=== PATIENT | female | born 1990 | race Caucasian/White ===

== ENCOUNTER 2016-12-08 07:38 | Emergency (ER) | payer SELFPAY ==
[~2016-12-08] VITALS: Ht 162.6 cm; Wt 108.9 kg
[~2016-12-08 07:38] MED LIST: AMOX500T PO; BENZ100C PO; CIPR10DR AD; PRED-220 PO; PRED50TA PO; PROAIR HFA8.5 GM INH; TRAM-29 PO
[2016-12-08 07:47] VITALS: BP 126/68
[2016-12-08] MEDS ORDERED: CEPH-264 PO (08:29)
[2016-12-08] MEDS ORDERED: PRED20TA PO (08:29)
--- NOTE | 2016-12-08 08:29 | PHYS DOC ---
Past Medical History Past Medical History: Asthma Past Surgical History: Alcohol Use: None Drug Use: None Adult General Chief Complaint Chief Complaint: INSECT BITE HPI HPI Patient is a 26 year old female presents to the emergency department with a history of being bitten by something around 0300 this morning. Patient states she has had redness and swelling to the left arm. Patient states she has had numbness and tingling to the lower left hand. Patients tetanus immunization is up to date. Patient denies fever, chills, SOA or difficulty breathing. Review of Systems Review of Systems Constitutional: Denies fever or chills [] Eyes: Denies change in visual acuity, redness, or eye pain [] HENT: Denies nasal congestion or sore throat [] Respiratory: Denies cough or shortness of breath [] Cardiovascular: No additional information not addressed in HPI [] GI: Denies abdominal pain, nausea, vomiting, bloody stools or diarrhea [] : Denies dysuria or hematuria [] Musculoskeletal: Denies back pain or joint pain [] Integument: Denies rash or skin lesions. Patient with redness and swelling noted. Neurologic: Denies headache, focal weakness or sensory changes [] Allergies Allergies Allergies Coded Allergies Type Severity Reaction Last Updated Verified No Known Drug Allergies 08/18/13 No Physical Exam Physical Exam Constitutional: Well developed, well nourished, no acute distress, non-toxic appearance. [] HENT: Normocephalic, atraumatic, bilateral external ears normal, oropharynx moist, no oral exudates, nose normal. [] Eyes: PERRLA, EOMI, conjunctiva normal, no discharge. [] Neck: Normal range of motion, no tenderness, supple, no stridor. [] Cardiovascular:Heart rate regular rhythm, no murmur [] Lungs & Thorax: Bilateral breath sounds clear to auscultation [] Skin: Warm, dry, no erythema, no rash. Patient with redness and swelling to the left lower humerus area. Peripheral pulses 2+ cap refill brisk < 2 seconds. Back: No tenderness Extremities: No tenderness, no cyanosis, no clubbing, ROM intact, no edema. Patient with equal machine builder bilaterally. Neurologic: Alert and oriented X 3, normal motor function, normal sensory function, no focal deficits noted. [] Psychologic: Affect normal, judgement normal, mood normal. [] Current Patient Data Vital Signs Vital Signs Date Time Temp Pulse Resp B/P Pulse Ox O2 Delivery O2 Flow Rate FiO2 12/08/16 07:47 98.3 94 16 96 Room Air 98.3 EKG EKG [] Radiology/Procedures Radiology/Procedures [] Course & Med Decision Making Course & Med Decision Making Pertinent Labs and Imaging studies reviewed. (See chart for details) Patient will be discharged home in stable condition. Patient was recommended to take Benadryl 25 mg every 6 hours as needed for itching and irritation. Patient will be placed on prednisone to help with reaction process. Patient will also be covered with Keflex as the swelling and redness appears significant. Patient will be provided with work noted. She was instructed that Benadryl will cause drowsiness do not take to if you need to be alert and oriented. She was provided with signs and symptoms to return back to the emergency department. Patient agrees with discharge instructions treatment regimens and follow-up recommendations. [] Dragon Disclaimer Dragon Disclaimer This electronic medical record was generated, in whole or in part, using a voice recognition dictation system. Departure Departure Impression: Primary Impression: Insect bite Disposition: HOME, SELF-CARE Condition: STABLE Referrals: UNKNOWN PCP NAME (PCP) Patient Instructions: Insect Bite, [id number] Additional Instructions: Activity as tolerated Medication as prescribed Benadryl 25 mg every 6 hours as needed for itching and irritation. This medication will cause drowsiness do note take if you need to be alert and oriented Ice packs to the area on 2o minutes and off 20 minutes several times a day Followup with primary care provider in 3-5 days Return to emergency department as needed for signs and symptoms that become worse. Scripts Cephalexin (Keflex)500 Mg Capsule1 Cap PO BID #14 CAP Prov:MARTA BRADFORD APRN 12/08/16 Prednisone 20 Mg Cfovww00 Mg PO DAILY #10 TAB Prov:MARTA BRADFORD APRN 12/08/16 MARTA BRADFORD APRN Dec 08, 2016 08:29
== END 2016-12-08 08:46 | disposition home or self-care (01) ==
LOC: ER 07:38
DX: S40.862A Insect bite (nonvenomous) of left upper arm, initial encounter (principal); J45.909 Unspecified asthma, uncomplicated; W57.XXXA Bitten or stung by nonvenomous insect and other nonvenomous arthropods, initial encounter; Y93.89 Activity, other specified; Y92.89 Other specified places as the place of occurrence of the external cause; Y99.8 Other external cause status
CPT/HCPCS: 99283

== ENCOUNTER 2017-02-07 08:44 | Emergency (ER) | payer SELFPAY ==
[~2017-02-07] VITALS: Ht 162.6 cm; Wt 108.9 kg
[~2017-02-07 08:44] MED LIST changes: +CEPH-264 PO; +PRED20TA PO; -TRAM-29 PO; +TRAM-48 PO
[2017-02-07 08:51] VITALS: BP 140/66
--- NOTE | 2017-02-07 09:06 | PHYS DOC ---
Past Medical History Past Medical History: Hypertension Past Surgical History: Alcohol Use: None Drug Use: None Adult General Chief Complaint Chief Complaint: SORE THROAT HPI HPI Patient is a 26 year old female presents to the emergency department with 2 day history of sore throat. She complains of mild sinus congestion. Low-grade fever today which was relieved with use of Motrin. Review of Systems Review of Systems Constitutional: fever HENT: nasal congestion and sore throat [] Respiratory: Denies cough or shortness of breath [] GI: Denies abdominal pain, nausea, vomiting, bloody stools or diarrhea [] : Denies dysuria or hematuria [] Musculoskeletal: Denies back pain or joint pain [] Integument: Denies rash or skin lesions [] Neurologic: Denies headache, focal weakness or sensory changes [] Allergies Allergies Allergies Coded Allergies Type Severity Reaction Last Updated Verified codeine Allergy Mild ITCHING 02/07/17 Yes Physical Exam Physical Exam Constitutional: Well developed, well nourished, no acute distress, non-toxic appearance. [] HENT: Normocephalic, atraumatic, bilateral tympanic membranes pearly guardado with effusion, posterior pharynx injected with postnasal drip present. Anterior turbinates erythematous Eyes: conjunctiva normal, no discharge. [] Neck: Normal range of motion, no tenderness, supple, no stridor. [] Cardiovascular:Heart rate regular rhythm, no murmur [] Lungs & Thorax: Bilateral breath sounds clear to auscultation [] Skin: Warm, dry, no erythema, no rash. [] Back: No tenderness, no CVA tenderness. [] Neurologic: Alert and oriented X 3, normal motor function, normal sensory function, no focal deficits noted. [] Current Patient Data Vital Signs Vital Signs Date Time Temp Pulse Resp B/P (MAP) Pulse Ox O2 Delivery O2 Flow Rate FiO2 02/07/17 08:51 98.3 101 18 140/66 (90) 97 Room Air 98.3 Lab Values Rapid strep positive EKG EKG [] Radiology/Procedures Radiology/Procedures [] Course & Med Decision Making Course & Med Decision Making Bicillin LA 1.2 milliunits IM in the emergency department Pertinent Labs and Imaging studies reviewed. (See chart for details) [] Dragon Disclaimer Dragon Disclaimer This electronic medical record was generated, in whole or in part, using a voice recognition dictation system. Departure Departure Impression: Primary Impression: Pharyngitis, streptococcal Disposition: 01 HOME, SELF-CARE Condition: STABLE Referrals: NO PCP (PCP) Patient Instructions: Strep Throat Additional Instructions: Bicillian LA 1.2MU IM given in the ED Tylenol alternate with advil as labeled and as indicated for symptom management\ Salt water gargles MISAEL FLORES APRN Feb 07, 2017 09:06
[2017-02-07] MEDS ORDERED: PENICILLIN G BENZATHINE LA 1,200,000 UNIT/2 ML DISP.SYRIN. IM ONE (09:30)
[2017-02-07 11:25] LABS: NEGATIVE OBC STREP NEG; POSITIVE OBC STREP POS
== END 2017-02-07 10:10 | disposition home or self-care (01) ==
LOC: ER 08:44
DX: J02.0 Streptococcal pharyngitis (principal); I10 Essential (primary) hypertension; Z88.5 Allergy status to narcotic agent
CPT/HCPCS: 87880; 96372; 99283; J0561

== ENCOUNTER 2017-04-07 17:07 | Emergency (ER) | payer SELFPAY ==
[~2017-04-07] VITALS: Ht 162.6 cm; Wt 102.1 kg
[2017-04-07 17:25] VITALS: BP 143/52
--- NOTE | 2017-04-07 17:28 | PHYS DOC ---
Past Medical History Past Medical History: Hypertension Past Surgical History: Alcohol Use: None Drug Use: None Adult General Chief Complaint Chief Complaint: PAIN ON URINATION HPI HPI Patient is a 27 year old female presents to the emergency department with complaints of left ear pain that began this morning and one week history of dysuria. She states she was using [id number] Uristat for relief of symptoms prior to 2 days ago and the symptoms intensified. She has no abdominal pain, she denies vaginal discharge, denies risk of or STD. She reports chills without measured fever. Review of Systems Review of Systems Constitutional: Chills without measured fever Eyes: Denies change in visual acuity, redness, or eye pain [] HENT: Denies nasal congestion or sore throat , left ear pain, nasal congestion [ ] Respiratory: Denies cough or shortness of breath [] GI: Denies abdominal pain, nausea, vomiting, bloody stools or diarrhea [] : Dysuria without hematuria Musculoskeletal: Denies back pain or joint pain [] Integument: Denies rash or skin lesions [] Neurologic: Denies headache, focal weakness or sensory changes [] Endocrine: Denies polyuria or polydipsia [] Allergies Allergies Allergies Coded Allergies Type Severity Reaction Last Updated Verified codeine Allergy Mild ITCHING 02/07/17 Yes Physical Exam Physical Exam Constitutional: Well developed, well nourished, no acute distress, non-toxic appearance. [] HENT: Normocephalic, atraumatic, left tympanic membrane erythematous with effusion. Clear discharge bilateral nares, posterior pharynx injected Eyes: PERRLA, EOMI, conjunctiva normal, no discharge. [] Neck: Normal range of motion, no tenderness, supple, no stridor. [] Cardiovascular:Heart rate regular rhythm, no murmur [] Lungs & Thorax: Bilateral breath sounds clear to auscultation [] Abdomen: Bowel sounds normal, soft, no tenderness, no masses, no pulsatile masses. [] Skin: Warm, dry, no erythema, no rash. [] Back: No tenderness, no CVA tenderness. [] Extremities: No tenderness, no cyanosis, no clubbing, ROM intact, no edema. [] Neurologic: Alert and oriented X 3, normal motor function, normal sensory function, no focal deficits noted. [] Psychologic: Affect normal, judgement normal, mood normal. [] Current Patient Data Vital Signs Vital Signs Date Time Temp Pulse Resp B/P (MAP) Pulse Ox O2 Delivery O2 Flow Rate FiO2 04/07/17 17:25 98.1 94 20 96 Room Air 98.1 Lab Values Laboratory Tests Test 04/07/17 16:38 04/07/17 17:12 POC Urine HCG, Qualitative Hcg negative (Negative) Urine Collection Type Unknown Urine Color Yellow Urine Clarity Cloudy Urine pH 5.5 Urine Specific [place] 1.025 Urine Protein Negative mg/dL (NEG-TRACE) Urine Glucose (UA) Negative mg/dL (NEG) Urine Ketones (Stick) Negative mg/dL (NEG) Urine Blood Trace (NEG) Urine Nitrite Negative (NEG) Urine Bilirubin Negative (NEG) Urine Urobilinogen Dipstick 0.2 mg/dL (0.2 mg/dL) Urine Leukocyte Esterase Moderate (NEG) Urine RBC Occ /HPF (0-2) Urine WBC 11-20 /HPF (0-4) Urine Squamous Epithelial Cells Mod /LPF Urine Bacteria Few /HPF (0-FEW) Urine Mucus Marked /LPF EKG EKG [] Radiology/Procedures Radiology/Procedures [] Course & Med Decision Making Course & Med Decision Making Pertinent Labs and Imaging studies reviewed. (See chart for details) [] Dragon Disclaimer Dragon Disclaimer This electronic medical record was generated, in whole or in part, using a voice recognition dictation system. Departure Departure Impression: Primary Impression: Left otitis media Additional Impression: UTI (lower urinary tract infection) Disposition: 01 HOME, SELF-CARE Condition: STABLE Referrals: NO PCP (PCP) Patient Instructions: Otitis Media, Adult, Urinary Tract Infection Scripts Sulfamethoxazole/Trimethoprim (BACTRIM DS TABLET) 1 Each Tablet 1 TAB PO BID, #20 TAB Prov: MISAEL FLORES CREW CHIEF 04/07/17 Problem Qualifiers Primary Impression: Left otitis media Otitis media type: serous Chronicity: acute Recurrence: not specified as recurrent Qualified Codes: H65.02 - Acute serous otitis media, left ear MISAEL FLORES CREW CHIEF Apr 07, 2017 17:28
[2017-04-07 17:34] LABS: BILIRUBIN,URINE NEGATIVE (NEG); GLUCOSE,URINE NEGATIVE (NEG); NITRITE,URINE NEGATIVE (NEG); PH,URINE 5.5; PROTEIN,URINE NEGATIVE (NEG-TRACE); UROBILINOGEN,URINE 0.2 mg/dL (0.2 mg/dL)
[2017-04-07 18:01] LABS: BACTERIA,URINE FEW /HPF (0-FEW); RBC,URINE OCC /HPF (0-2); SQUAMOUS EPITHELIAL CELL,UR MOD /LPF
[2017-04-07] MEDS ORDERED: SULF1TAB24 PO (18:12)
== END 2017-04-07 18:18 | disposition home or self-care (01) ==
LOC: ER 17:07
DX: H65.02 Acute serous otitis media, left ear (principal); N39.0 Urinary tract infection, site not specified; I10 Essential (primary) hypertension; Z88.5 Allergy status to narcotic agent
CPT/HCPCS: 81001; 81025; 87086; 99284

== ENCOUNTER 2017-08-22 11:36 | Emergency (ER) | payer SELFPAY ==
[2017-08-22 12:12] LABS: NEGATIVE OBC STREP NEG; POSITIVE OBC STREP POS
[2017-08-22] MEDS: DEXAMETHASONE 4 MG TABLET PO (12:33)
[2017-08-22] MEDS: PENICILLIN G BENZATHINE LA 1,200,000 UNIT/2 ML DISP.SYRIN. IM (12:33)
[2017-08-22] MEDS: LIDOCAINE 2% VISCOUS 15 ML SOLUTION. SWSW (12:33)
== END 2017-08-22 12:40 | disposition home or self-care (01) ==
LOC: ER 11:36
DX: J02.0 Streptococcal pharyngitis (principal); J45.909 Unspecified asthma, uncomplicated; I10 Essential (primary) hypertension
CPT/HCPCS: 87880; 96372; 99283-25; J0561; J8540

== ENCOUNTER 2017-09-30 19:33 | Emergency (ER) | payer SELFPAY ==
[2017-09-30 20:33] LABS: INFLUENZA A PATIENT NEGATIVE (NEGATIVE); INFLUENZA B PATIENT NEGATIVE (NEGATIVE); OBC FLU VALID
== END 2017-09-30 21:37 | disposition home or self-care (01) ==
LOC: ER 19:33
DX: J21.9 Acute bronchiolitis, unspecified (principal); B97.89 Other viral agents as the cause of diseases classified elsewhere; F17.200 Nicotine dependence, unspecified, uncomplicated; J06.9 Acute upper respiratory infection, unspecified; J45.909 Unspecified asthma, uncomplicated; I10 Essential (primary) hypertension
CPT/HCPCS: 71046; 87804; 87804-59; 99285-25

== ENCOUNTER 2017-11-14 23:54 | Emergency (ER) | payer OTHER ==
[2017-11-15 01:19] LABS: ADD MAN DIFF? NO
[2017-11-15 01:22] LABS: URINE HCG POC HCG NEGATIVE (Negative)
[2017-11-15 01:22] LABS: BASO # 0.1 x10^3/uL (0.0-0.2); BASO % 1 % (0-3); EOS # 0.4 x10^3/uL (0.0-0.7); EOS % 4 % (0-3); HEMATOCRIT 39.8 % (36.0-47.0); LYMPH # 2.9 x10^3/uL (1.0-4.8); LYMPH % 31 % (24-48); MEAN CORPUSCULAR HEMOGLOBIN 31 pg (25-35); MEAN CORPUSCULAR HGB CONC 35 g/dL (31-37); MEAN CORPUSCULAR VOLUME 88 fL (79-100); MONO # 0.9 x10^3/uL (0.0-1.1); MONO % 10 % (0-9); NEUT # 5.1 x10^3uL (1.8-7.7); NEUT % 54 % (31-73); PLATELET COUNT 263 x10^3/uL (140-400); RED BLOOD COUNT 4.55 x10^6/uL (3.50-5.40); WHITE BLOOD COUNT 9.4 x10^3/uL (4.0-11.0)
[2017-11-15 01:24] LABS: BILIRUBIN,URINE NEGATIVE (NEG); CLARITY,URINE CLEAR; COLOR,URINE YELLOW; GLUCOSE,URINE NEGATIVE (NEG); NITRITE,URINE NEGATIVE (NEG); PROTEIN,URINE NEGATIVE (NEG-TRACE)
[2017-11-15] MEDS: IV NORMAL SALINE 1000ML BAG 1,000 ML IV (01:25)
[2017-11-15] MEDS: KETOROLAC 30 MG/ML INJ. IV (01:25)
[2017-11-15] MEDS: LIDO:MAALOX:DONNATAL 1:1:1 15 ML SINGLE DOSE SWSW (01:25)
[2017-11-15] MEDS: IPRATRPIUM/ALBUTEROL 0.5/2.5MG 3 ML NEBU. NEB (01:30)
[2017-11-15 01:32] LABS: ANION GAP 11 (6-14); BLOOD UREA NITROGEN 6 mg/dL (7-20); BUN/CREATININE RATIO 10 (6-20); CALCIUM 9.4 mg/dL (8.5-10.1); CARBON DIOXIDE 27 mmol/L (21-32); CHLORIDE 103 mmol/L (98-107); CREATININE 0.6 mg/dL (0.6-1.0); GFR 118.2; GLUCOSE 110 mg/dL (70-99); POTASSIUM 3.8 mmol/L (3.5-5.1); SODIUM 141 mmol/L (136-145)
[2017-11-15 01:33] LABS: BACTERIA,URINE 0 /HPF (0-FEW); RBC,URINE 0 /HPF (0-2); SQUAMOUS EPITHELIAL CELL,UR FEW /LPF; WBC,URINE OCC /HPF (0-4)
[2017-11-15 01:35] LABS: D-DIMER 0.28 ug/mlFEU (0.00-0.50)
[2017-11-15 01:38] LABS: ALBUMIN 3.7 g/dL (3.4-5.0); ALBUMIN/GLOBULIN RATIO 1.1 (1.0-1.7); ALK PHOS 75 U/L (46-116); ALT (SGPT) 28 U/L (14-59); AST (SGOT) 13 U/L (15-37); LIPASE 100 U/L (73-393); TOTAL BILIRUBIN 0.2 mg/dL (0.2-1.0); TOTAL PROTEIN 7.2 g/dL (6.4-8.2)
[2017-11-15 01:58] LABS: TROPONINI < 0.017 ng/mL (0.000-0.055)
== END 2017-11-15 03:10 | disposition home or self-care (01) ==
LOC: ER 23:54
DX: J15.9 Unspecified bacterial pneumonia (principal); J45.901 Unspecified asthma with (acute) exacerbation; I10 Essential (primary) hypertension
CPT/HCPCS: 36415; 71046; 80053; 81001; 81025; 83690; 84484; 85025; 85379; 93005; 94640; 96361; 96374; 99285-25; J1885; J7030; J7620

== ENCOUNTER 2017-12-27 00:28 | Emergency (ER) | payer OTHER ==
[2017-12-27 01:27] LABS: ADD MAN DIFF? NO
[2017-12-27 01:30] LABS: BASO # 0.1 x10^3/uL (0.0-0.2); BASO % 1 % (0-3); EOS # 0.3 x10^3/uL (0.0-0.7); EOS % 3 % (0-3); HEMATOCRIT 34.8 % (36.0-47.0); HEMOGLOBIN 12.3 g/dL (12.0-15.5); LYMPH # 2.6 x10^3/uL (1.0-4.8); LYMPH % 28 % (24-48); MEAN CORPUSCULAR HEMOGLOBIN 31 pg (25-35); MEAN CORPUSCULAR HGB CONC 35 g/dL (31-37); MEAN CORPUSCULAR VOLUME 89 fL (79-100); MONO # 0.9 x10^3/uL (0.0-1.1); MONO % 9 % (0-9); NEUT # 5.6 x10^3uL (1.8-7.7); NEUT % 59 % (31-73); PLATELET COUNT 282 x10^3/uL (140-400); RED BLOOD COUNT 3.93 x10^6/uL (3.50-5.40); RED CELL DISTRIBUTION WIDTH 13.8 % (11.5-14.5); WHITE BLOOD COUNT 9.5 x10^3/uL (4.0-11.0)
[2017-12-27 01:48] LABS: ANION GAP 11 (6-14); BLOOD UREA NITROGEN 10 mg/dL (7-20); BUN/CREATININE RATIO 17 (6-20); CALCIUM 8.8 mg/dL (8.5-10.1); CARBON DIOXIDE 25 mmol/L (21-32); CHLORIDE 104 mmol/L (98-107); CREATININE 0.6 mg/dL (0.6-1.0); GFR 118.2; GLUCOSE 124 mg/dL (70-99); POTASSIUM 3.8 mmol/L (3.5-5.1); SODIUM 140 mmol/L (136-145)
[2017-12-27 01:53] LABS: ALBUMIN 3.6 g/dL (3.4-5.0); ALBUMIN/GLOBULIN RATIO 1.2 (1.0-1.7); ALK PHOS 69 U/L (46-116); ALT (SGPT) 27 U/L (14-59); AST (SGOT) 13 U/L (15-37); TOTAL BILIRUBIN 0.3 mg/dL (0.2-1.0); TOTAL PROTEIN 6.7 g/dL (6.4-8.2)
[2017-12-27 01:56] LABS: TROPONINI < 0.017 ng/mL (0.000-0.055)
== END 2017-12-27 02:43 | disposition home or self-care (01) ==
LOC: ER 00:28
DX: R20.0 Anesthesia of skin (principal); I10 Essential (primary) hypertension; J45.909 Unspecified asthma, uncomplicated; Z88.1 Allergy status to other antibiotic agents
CPT/HCPCS: 36415; 80053; 84484; 85025; 93005; 93971; 99285-25

== ENCOUNTER 2018-05-08 18:30 | Emergency (ER) | payer OTHER ==
[~2018-05-08] VITALS: Ht 162.6 cm; Wt 108.9 kg
[~2018-05-08 18:30] MED LIST changes: +AZIT250T6 PO; +DEXA4TAB PO; +SULF1TAB24 PO; +VENTOLIN HFA18 GM INH
[2018-05-08] MEDS ORDERED: ASPIRIN 325 MG TABLET PO ONE (19:45)
[2018-05-08 19:52] LABS: BASO # 0.1 x10^3/uL (0.0-0.2); BASO % 1 % (0-3); EOS # 0.4 x10^3/uL (0.0-0.7); EOS % 4 % (0-3); HEMATOCRIT 39.6 % (36.0-47.0); HEMOGLOBIN 13.7 g/dL (12.0-15.5); LYMPH # 2.4 x10^3/uL (1.0-4.8); LYMPH % 21 % (24-48); MEAN CORPUSCULAR HEMOGLOBIN 30 pg (25-35); MEAN CORPUSCULAR HGB CONC 35 g/dL (31-37); MEAN CORPUSCULAR VOLUME 87 fL (79-100); MONO # 0.8 x10^3/uL (0.0-1.1); MONO % 7 % (0-9); NEUT # 7.6 x10^3uL (1.8-7.7); NEUT % 67 % (31-73); PLATELET COUNT 257 x10^3/uL (140-400); RED BLOOD COUNT 4.56 x10^6/uL (3.50-5.40); RED CELL DISTRIBUTION WIDTH 13.4 % (11.5-14.5); WHITE BLOOD COUNT 11.3 x10^3/uL (4.0-11.0)
[2018-05-08 20:01] LABS: PROTHROMBIN TIME PATIENT 12.6 SEC (11.7-14.0)
[2018-05-08 20:01] LABS: U PREG PATIENT NEGATIVE (NEG)
[2018-05-08 20:02] LABS: CREATININE 0.6 mg/dL (0.6-1.0); GFR 117.4; POTASSIUM 3.9 mmol/L (3.5-5.1)
[2018-05-08 20:05] LABS: D-DIMER 0.36 ug/mlFEU (0.00-0.50)
[2018-05-08] MEDS ORDERED: ONDANSETRON PF 4 MG/2 ML VIAL. ONE (20:07)
[2018-05-08 20:10] LABS: ALBUMIN 3.7 g/dL (3.4-5.0); ALBUMIN/GLOBULIN RATIO 1.2 (1.0-1.7); TOTAL BILIRUBIN 0.2 mg/dL (0.2-1.0); TOTAL PROTEIN 6.9 g/dL (6.4-8.2)
[2018-05-08] MEDS ORDERED: ONDANSETRON PF 4 MG/2 ML VIAL. IV ONE (20:30)
[2018-05-08 20:45] VITALS: BP 121/73
--- NOTE | 2018-05-08 22:06 | EKG ---
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
--- NOTE | 2018-05-08 22:06 | PHYS DOC ---
Past Medical History Past Medical History: Asthma, Hypertension, Pneumonia Past Surgical History: Additional Past Surgical Histo: CARPAL TUNEL Alcohol Use: None Drug Use: None Adult General Chief Complaint Chief Complaint: CHEST PAIN HPI HPI Patient is a 28 year old [f__sex] who presents with [] Review of Systems Review of Systems Constitutional: Denies fever or chills [] Eyes: Denies change in visual acuity, redness, or eye pain [] HENT: Denies nasal congestion or sore throat [] Respiratory: Denies cough or shortness of breath [] Cardiovascular: No additional information not addressed in HPI [] GI: Denies abdominal pain, nausea, vomiting, bloody stools or diarrhea [] : Denies dysuria or hematuria [] Musculoskeletal: Denies back pain or joint pain [] Integument: Denies rash or skin lesions [] Neurologic: Denies headache, focal weakness or sensory changes [] Endocrine: Denies polyuria or polydipsia [] All other systems were reviewed and found to be within normal limits, except as documented in this note. Current Medications Current Medications Current Medications Medications (Trade) Dose Ordered Sig/Alex Start Time Stop Time Status Last Admin Dose Admin Aspirin (Gwendolyn Aspirin) 325 mg 1X ONCE 05/08/18 19:45 05/08/18 19:46 DC 05/08/18 19:15 325 MG Ondansetron HCl (Zofran) 4 mg 1X ONCE 05/08/18 20:30 05/08/18 20:31 DC 05/08/18 20:00 4 MG Allergies Allergies Allergies Coded Allergies Type Severity Reaction Last Updated Verified cephalexin Allergy Unknown 12/27/17 Yes Physical Exam Physical Exam Constitutional: Well developed, well nourished, no acute distress, non-toxic appearance. [] HENT: Normocephalic, atraumatic, bilateral external ears normal, oropharynx moist, no oral exudates, nose normal. [] Eyes: PERRLA, EOMI, conjunctiva normal, no discharge. [] Neck: Normal range of motion, no tenderness, supple, no stridor. [] Cardiovascular:Heart rate regular rhythm, no murmur [] Lungs & Thorax: Bilateral breath sounds clear to auscultation [] Abdomen: Bowel sounds normal, soft, no tenderness, no masses, no pulsatile masses. [] Skin: Warm, dry, no erythema, no rash. [] Back: No tenderness, no CVA tenderness. [] Extremities: No tenderness, no cyanosis, no clubbing, ROM intact, no edema. [] Neurologic: Alert and oriented X 3, normal motor function, normal sensory function, no focal deficits noted. [] Psychologic: Affect normal, judgement normal, mood normal. [] Current Patient Data Vital Signs Vital Signs Date Time Temp Pulse Resp B/P (MAP) Pulse Ox O2 Delivery O2 Flow Rate FiO2 05/08/18 20:45 72 18 121/73 (89) 99 05/08/18 19:10 98.9 Room Air 98.9 Lab Values Laboratory Tests Test 05/08/18 18:40 05/08/18 19:44 Urine Test Negative (NEG) White Blood Count 11.3 x10^3/uL (4.0-11.0) H Red Blood Count 4.56 x10^6/uL (3.50-5.40) Hemoglobin 13.7 g/dL (12.0-15.5) Hematocrit 39.6 % (36.0-47.0) Mean Corpuscular Volume 87 fL (79-100) Mean Corpuscular Hemoglobin 30 pg (25-35) Mean Corpuscular Hemoglobin Concent 35 g/dL (31-37) Red Cell Distribution Width 13.4 % (11.5-14.5) Platelet Count 257 x10^3/uL (140-400) Neutrophils (%) (Auto) 67 % (31-73) Lymphocytes (%) (Auto) 21 % (24-48) L Monocytes (%) (Auto) 7 % (0-9) Eosinophils (%) (Auto) 4 % (0-3) H Basophils (%) (Auto) 1 % (0-3) Neutrophils # (Auto) 7.6 x10^3uL (1.8-7.7) Lymphocytes # (Auto) 2.4 x10^3/uL (1.0-4.8) Monocytes # (Auto) 0.8 x10^3/uL (0.0-1.1) Eosinophils # (Auto) 0.4 x10^3/uL (0.0-0.7) Basophils # (Auto) 0.1 x10^3/uL (0.0-0.2) Prothrombin Time 12.6 SEC (11.7-14.0) Prothrombin Time INR 1.0 (0.8-1.1) D-Dimer (Carolann) 0.36 ug/mlFEU (0.00-0.50) Sodium Level 140 mmol/L (136-145) Potassium Level 3.9 mmol/L (3.5-5.1) Chloride Level 104 mmol/L (98-107) Carbon Dioxide Level 28 mmol/L (21-32) Anion Gap 8 (6-14) Blood Urea Nitrogen 7 mg/dL (7-20) Creatinine 0.6 mg/dL (0.6-1.0) Estimated GFR (Cockcroft-Gault) 117.4 BUN/Creatinine Ratio 12 (6-20) Glucose Level 102 mg/dL (70-99) H Calcium Level 9.0 mg/dL (8.5-10.1) Total Bilirubin 0.2 mg/dL (0.2-1.0) Aspartate Amino Transferase (AST) 15 U/L (15-37) Alanine Aminotransferase (ALT) 33 U/L (14-59) Alkaline Phosphatase 68 U/L (46-116) Troponin I Quantitative < 0.017 ng/mL (0.000-0.055) Total Protein 6.9 g/dL (6.4-8.2) Albumin 3.7 g/dL (3.4-5.0) Albumin/Globulin Ratio 1.2 (1.0-1.7) Laboratory Tests 05/08/18 19:44 Laboratory Tests 05/08/18 19:44 EKG EKG [] Radiology/Procedures Radiology/Procedures [] Course & Med Decision Making Course & Med Decision Making Pertinent Labs and Imaging studies reviewed. (See chart for details) [] Dragon Disclaimer Dragon Disclaimer This electronic medical record was generated, in whole or in part, using a voice recognition dictation system. Departure Departure Impression: Primary Impression: Atypical chest pain Disposition: 01 HOME, SELF-CARE Condition: STABLE Referrals: UNKNOWN PCP NAME (PCP) Patient Instructions: Chest Pain (Nonspecific)-Brief Additional Instructions: Tylenol or ibuprofen as needed for pain. Activity as tolerated. Follow-up with your primary care doctor for further evaluation of your ongoing non-specific chest pain. Return to the ER if her symptoms worsen. EVERARDO DOCKERY TRANSITIONS MANAGER May 08, 2018 22:06
--- NOTE | 2018-05-09 00:05 | RAD ---
PA and lateral chest radiographs 05/08/2018 CLINICAL HISTORY: Left-sided chest pressure for 2 days. Hypertension. Two PA and a lateral digital radiographs of the chest were obtained. Comparison study is dated 11/15/2017. The cardiac and mediastinal silhouettes are within normal limits in size and configuration. No acute pulmonary infiltrate is seen. No pleural effusion or pneumothorax is noted. Degenerative changes are seen involving the thoracic spine. IMPRESSION: No acute abnormality is seen. Electronically signed by: Hoang Matute MD (05/09/2018 12:02 AM) [facility]
== END 2018-05-08 22:11 | disposition home or self-care (01) ==
LOC: ER 18:30
DX: R07.89 Other chest pain (principal); J45.909 Unspecified asthma, uncomplicated; I10 Essential (primary) hypertension; Z88.1 Allergy status to other antibiotic agents
CPT/HCPCS: 36415; 71046; 80053; 81025; 84484; 85025; 85379; 85610; 93005; 96374; 99285; J2405

== ENCOUNTER 2018-11-10 17:36 | Emergency (ER) | payer OTHER ==
[~2018-11-10] VITALS: Ht 162.6 cm; Wt 106.6 kg
[~2018-11-10 17:36] MED LIST changes: +ALBU2.5V8 INH; -PROAIR HFA8.5 GM INH
[2018-11-10] MEDS ORDERED: LIDO:MAALOX 1:1 20 ML SINGLE DOSE. SWSW ONE ×2 (18:30→19:00)
[2018-11-10 18:34] LABS: BASO # 0.1 x10^3/uL (0.0-0.2); BASO % 1 % (0-3); EOS # 0.3 x10^3/uL (0.0-0.7); EOS % 3 % (0-3); HEMATOCRIT 37.7 % (36.0-47.0); HEMOGLOBIN 13.1 g/dL (12.0-15.5); LYMPH # 2.1 x10^3/uL (1.0-4.8); LYMPH % 25 % (24-48); MEAN CORPUSCULAR HEMOGLOBIN 30 pg (25-35); MEAN CORPUSCULAR HGB CONC 35 g/dL (31-37); MEAN CORPUSCULAR VOLUME 85 fL (79-100); MONO # 0.9 x10^3/uL (0.0-1.1); MONO % 10 % (0-9); NEUT # 5.2 x10^3uL (1.8-7.7); NEUT % 61 % (31-73); PLATELET COUNT 258 x10^3/uL (140-400); RED BLOOD COUNT 4.42 x10^6/uL (3.50-5.40); RED CELL DISTRIBUTION WIDTH 12.9 % (11.5-14.5); WHITE BLOOD COUNT 8.6 x10^3/uL (4.0-11.0)
[2018-11-10 18:42] LABS: CALCIUM 8.9 mg/dL (8.5-10.1); CREATININE 0.7 mg/dL (0.6-1.0); GFR 98.3; POTASSIUM 3.7 mmol/L (3.5-5.1)
[2018-11-10 18:47] LABS: ALBUMIN 3.7 g/dL (3.4-5.0); ALBUMIN/GLOBULIN RATIO 1.1 (1.0-1.7); TOTAL BILIRUBIN 0.2 mg/dL (0.2-1.0); TOTAL PROTEIN 7.2 g/dL (6.4-8.2)
[2018-11-10 19:39] VITALS: BP 136/87
[2018-11-10 19:52] LABS: BILIRUBIN,URINE NEGATIVE (NEG); CLARITY,URINE CLEAR; COLOR,URINE YELLOW; NITRITE,URINE NEGATIVE (NEG); PROTEIN,URINE NEGATIVE (NEG-TRACE); UROBILINOGEN,URINE 0.2 mg/dL (0.2 mg/dL)
[2018-11-10 20:00] LABS: RBC,URINE 0 /HPF (0-2)
[2018-11-10 20:01] LABS: BACTERIA,URINE FEW /HPF (0-FEW); SQUAMOUS EPITHELIAL CELL,UR FEW /LPF
[2018-11-10] MEDS ORDERED: OMEP20CA10 PO (21:07)
--- NOTE | 2018-11-10 21:08 | PHYS DOC ---
Past Medical History Past Medical History: Asthma, GERD, Hypertension, Pneumonia (TRINHMAVERICKSTACY Johnson APRN) Past Surgical History: , Other Additional Past Surgical Histo: CARPAL TUNEL (TRINHMAVERICKTERENCE Johnson APRN) Additional Information: 0.5 PPD Alcohol Use: None Drug Use: None (TRINHMAVERICKTERENCE Johnson APRN) Adult General Chief Complaint Chief Complaint: CHEST WALL PAIN HPI HPI Patient is a 28 year old female who presents with a bubbling sensation in her gut with sternal pain. She denies fever, nausea, constipation or diarrhea. She has not taken any OTC medications for this condition. (WILLEMKATYASHEEBAMAVERICKSTACY Johnson APRN) Review of Systems Review of Systems Constitutional: Denies fever or chills [] Eyes: Denies change in visual acuity, redness, or eye pain [] HENT: Denies nasal congestion or sore throat [] Respiratory: Denies cough or shortness of breath [] Cardiovascular: No additional information not addressed in HPI [] GI: See HPI : Denies dysuria or hematuria [] Musculoskeletal: Denies back pain or joint pain [] Integument: Denies rash or skin lesions [] Neurologic: Denies headache, focal weakness or sensory changes [] Endocrine: Denies polyuria or polydipsia [] All other systems were reviewed and found to be within normal limits, except as documented in this note. (TRINHMAVERICKTERENCE Johnson APRN) Current Medications Current Medications Current Medications Medications (Trade) Dose Ordered Sig/Alex Start Time Stop Time Status Last Admin Dose Admin Multi-Ingredient Mouthwash/Gargle (Gi Cocktail) 20 ml 1X ONCE 11/10/18 19:00 11/10/18 19:01 Cancel (MIN PURCELL MD) Allergies Allergies Allergies Coded Allergies Type Severity Reaction Last Updated Verified cephalexin Allergy Unknown 12/27/17 Yes (MIN PURCELL MD) Physical Exam Physical Exam Constitutional: Well developed, well nourished, no acute distress, non-toxic a ppearance. [] HENT: Normocephalic, atraumatic, bilateral external ears normal, oropharynx moist, no oral exudates, nose normal. [] Eyes: PERRLA, EOMI, conjunctiva normal, no discharge. [] Neck: Normal range of motion, no tenderness, supple, no stridor. [] Cardiovascular:Heart rate regular rhythm, no murmur, epigastric to mid sternal pain with palpation.[] Lungs & Thorax: Bilateral breath sounds clear to auscultation [] Abdomen: Bowel sounds normal, soft, mild epigastric tenderness, no masses, no pulsatile masses. [] Skin: Warm, dry, no erythema, no rash. [] Back: No tenderness, no CVA tenderness. [] Extremities: No tenderness, no cyanosis, no clubbing, ROM intact, no edema. [] Neurologic: Alert and oriented X 3, normal motor function, normal sensory function, no focal deficits noted. [] Psychologic: Affect normal, judgement normal, mood normal. [] (MAVERICK TSANG APRN) Current Patient Data Lab Values Laboratory Tests Test 11/10/18 18:15 11/10/18 19:33 11/10/18 19:40 White Blood Count 8.6 x10^3/uL (4.0-11.0) Red Blood Count 4.42 x10^6/uL (3.50-5.40) Hemoglobin 13.1 g/dL (12.0-15.5) Hematocrit 37.7 % (36.0-47.0) Mean Corpuscular Volume 85 fL (79-100) Mean Corpuscular Hemoglobin 30 pg (25-35) Mean Corpuscular Hemoglobin Concent 35 g/dL (31-37) Red Cell Distribution Width 12.9 % (11.5-14.5) Platelet Count 258 x10^3/uL (140-400) Neutrophils (%) (Auto) 61 % (31-73) Lymphocytes (%) (Auto) 25 % (24-48) Monocytes (%) (Auto) 10 % (0-9) H Eosinophils (%) (Auto) 3 % (0-3) Basophils (%) (Auto) 1 % (0-3) Neutrophils # (Auto) 5.2 x10^3uL (1.8-7.7) Lymphocytes # (Auto) 2.1 x10^3/uL (1.0-4.8) Monocytes # (Auto) 0.9 x10^3/uL (0.0-1.1) Eosinophils # (Auto) 0.3 x10^3/uL (0.0-0.7) Basophils # (Auto) 0.1 x10^3/uL (0.0-0.2) D-Dimer (Carolann) < 0.27 ug/mlFEU Sodium Level 136 mmol/L (136-145) Potassium Level 3.7 mmol/L (3.5-5.1) Chloride Level 100 mmol/L (98-107) Carbon Dioxide Level 30 mmol/L (21-32) Anion Gap 6 (6-14) Blood Urea Nitrogen 10 mg/dL (7-20) Creatinine 0.7 mg/dL (0.6-1.0) Estimated GFR (Cockcroft-Gault) 98.3 BUN/Creatinine Ratio 14 (6-20) Glucose Level 91 mg/dL (70-99) Calcium Level 8.9 mg/dL (8.5-10.1) Total Bilirubin 0.2 mg/dL (0.2-1.0) Aspartate Amino Transferase (AST) 13 U/L (15-37) L Alanine Aminotransferase (ALT) 31 U/L (14-59) Alkaline Phosphatase 73 U/L (46-116) Troponin I Quantitative < 0.017 ng/mL (0.000-0.055) Total Protein 7.2 g/dL (6.4-8.2) Albumin 3.7 g/dL (3.4-5.0) Albumin/Globulin Ratio 1.1 (1.0-1.7) Urine Collection Type Void Urine Color Yellow Urine Clarity Clear Urine pH 6.0 Urine Specific [place] 1.010 Urine Protein Negative mg/dL (NEG-TRACE) Urine Glucose (UA) Negative mg/dL (NEG) Urine Ketones (Stick) Negative mg/dL (NEG) Urine Blood Negative (NEG) Urine Nitrite Negative (NEG) Urine Bilirubin Negative (NEG) Urine Urobilinogen Dipstick 0.2 mg/dL (0.2 mg/dL) Urine Leukocyte Esterase Trace (NEG) Urine RBC 0 /HPF (0-2) Urine WBC 1-4 /HPF (0-4) Urine Squamous Epithelial Cells Few /LPF Urine Bacteria Few /HPF (0-FEW) POC Urine HCG, Qualitative Hcg negative (Negative) Laboratory Tests 11/10/18 18:15 Laboratory Tests 11/10/18 18:15 Microbiology 11/10/18 Urine Culture - Final, Complete 11/10/18 Urine Culture Result 1 (ANSHU) - Final, Complete 11/10/18 Urine Culture Result 2 (ANSHU) - Final, Complete (MIN PURCELL MD) EKG EKG [] (MAVERICK TSANG APRN) Radiology/Procedures Radiology/Procedures [][facility] [address] [place] [address] IMAGING REPORT Signed PATIENT: LEXIS RODRIGUEZ ACCOUNT: [id number] : 1990 LOCATION: ER AGE: 28 SEX: F EXAM STATUS: DEP ER ORD. PHYSICIAN: MAVERICK TSANG APRN REASON: chest wall pain. PREG TEST PROCEDURE: CHEST PA & LATERAL CHEST PA LATERAL History: Hypertension, asthma, atraumatic chest pain Comparison: May 08, 2018 Findings: 2 views of the chest are submitted. There is no infiltrate, pneumothorax, or effusion. The cardiac silhouette is within normal limits in size. The trachea is in the midline. No acute osseous abnormality is identified. Impression: 1. There is no evidence of acute cardiopulmonary disease. Electronically signed by: Kulwinder Martin MD (11/10/2018 10:54 PM) [facility] DICTATED and SIGNED BY: KULWINDER MARTIN MD DATE: 11/10/182253 (MAVERICK TSANG APRN) Course & Med Decision Making Course & Med Decision Making Pertinent Labs and Imaging studies reviewed. (See chart for details) []The patient was given a GI cocktail with relief of her symptoms. (MAVERICK TSANG APRN) Course & Med Decision Making Staff Physician Addendum: I was working in the ER during the course of this patient's visit. I was available for consultation as needed, but I was not directly involved in the care of this patient. (MIN PURCELL MD) Dragon Disclaimer Dragon Disclaimer This electronic medical record was generated, in whole or in part, using a voice recognition dictation system. (MAVERICK TSANG APRN) Departure Departure Impression: Primary Impression: GERD (gastroesophageal reflux disease) Disposition: HOME, SELF-CARE Condition: STABLE Referrals: UNKNOWN PCP NAME (PCP) BULL CARREON MD Patient Instructions: Diet for Gastroesophageal Reflux Disease, Adult Additional Instructions: Follow-up with the GI specialist for further evaluation of your symptoms. Take the medication as directed. If worsening return immediately to the emergency department. Scripts Omeprazole (OMEPRAZOLE) 20 Mg Capsule. 1 CAP PO DAILY for GERD, #30 CAP 5 Refills Prov: MAVERICK TSANG APRN 11/10/18 MAVERICK TSANG APRN Nov 10, 2018 21:08 MIN PURCELL MD Jan 21, 2019 18:22
--- NOTE | 2018-11-10 22:57 | RAD ---
CHEST PA LATERAL History: Hypertension, asthma, atraumatic chest pain Comparison: May 08, 2018 Findings: 2 views of the chest are submitted. There is no infiltrate, pneumothorax, or effusion. The cardiac silhouette is within normal limits in size. The trachea is in the midline. No acute osseous abnormality is identified. Impression: 1. There is no evidence of acute cardiopulmonary disease. Electronically signed by: Philip Johnson MD (11/10/2018 10:54 PM) [facility]
--- NOTE | 2018-11-11 10:06 | EKG ---
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
== END 2018-11-10 21:26 | disposition home or self-care (01) ==
LOC: ER 17:36
DX: K21.9 Gastro-esophageal reflux disease without esophagitis (principal); I10 Essential (primary) hypertension; J45.909 Unspecified asthma, uncomplicated; F17.200 Nicotine dependence, unspecified, uncomplicated; Z88.1 Allergy status to other antibiotic agents
CPT/HCPCS: 36415; 71046; 80053; 81001; 81025; 84484; 85025; 85379; 87086; 93005; 99284-25

== ENCOUNTER 2019-07-26 19:52 | Emergency (ER) | payer MEDICAID, OTHER ==
[~2019-07-26] VITALS: Ht 165.1 cm; Wt 113.4 kg
[~2019-07-26 19:52] MED LIST changes: +OMEP-229 PO
[2019-07-26 20:31] VITALS: BP 88/53
[2019-07-26 20:58] LABS: BASO # 0.1 x10^3/uL (0.0-0.2); BASO % 1 % (0-3); EOS # 0.4 x10^3/uL (0.0-0.7); EOS % 4 % (0-3); HEMATOCRIT 42.6 % (36.0-47.0); HEMOGLOBIN 14.5 g/dL (12.0-15.5); LYMPH # 2.4 x10^3/uL (1.0-4.8); LYMPH % 22 % (24-48); MEAN CORPUSCULAR HEMOGLOBIN 29 pg (25-35); MEAN CORPUSCULAR HGB CONC 34 g/dL (31-37); MEAN CORPUSCULAR VOLUME 86 fL (79-100); MONO # 0.9 x10^3/uL (0.0-1.1); MONO % 8 % (0-9); NEUT # 7.3 x10^3/uL (1.8-7.7); NEUT % 66 % (31-73); PLATELET COUNT 292 x10^3/uL (140-400); RED BLOOD COUNT 4.95 x10^6/uL (3.50-5.40); RED CELL DISTRIBUTION WIDTH 13.4 % (11.5-14.5); WHITE BLOOD COUNT 11.1 x10^3/uL (4.0-11.0)
[2019-07-26 21:10] LABS: PROTHROMBIN TIME PATIENT 12.9 SEC (11.7-14.0)
[2019-07-26 21:13] LABS: CALCIUM 8.8 mg/dL (8.5-10.1); CREATININE 0.7 mg/dL (0.6-1.0); GFR 97.6; POTASSIUM 3.3 mmol/L (3.5-5.1)
[2019-07-26 21:14] LABS: BILIRUBIN,URINE NEGATIVE (NEG); CLARITY,URINE CLOUDY; COLOR,URINE YELLOW; NITRITE,URINE NEGATIVE (NEG); PROTEIN,URINE NEGATIVE (NEG-TRACE)
[2019-07-26 21:16] LABS: D-DIMER 0.47 ug/mlFEU (0.00-0.50)
[2019-07-26 21:20] LABS: ALBUMIN 3.7 g/dL (3.4-5.0); ALBUMIN/GLOBULIN RATIO 0.9 (1.0-1.7); TOTAL BILIRUBIN 0.4 mg/dL (0.2-1.0); TOTAL PROTEIN 7.6 g/dL (6.4-8.2)
[2019-07-26 21:22] LABS: RBC,URINE 0 /HPF (0-2)
[2019-07-26 21:23] LABS: BACTERIA,URINE 0 /HPF (0-FEW); SQUAMOUS EPITHELIAL CELL,UR OCC /LPF
[2019-07-26] MEDS ORDERED: predniSONE 10 MG TABLET PO ONE (21:30)
[2019-07-26] MEDS ORDERED: IV NORMAL SALINE 1000ML BAG 1,000 ML IV SCH (21:30)
[2019-07-26] MEDS ORDERED: ALBUTEROL SULFATE 2.5 MG/3 ML NEBU. NEB ONE (21:30)
--- NOTE | 2019-07-26 21:33 | RAD ---
CT HEAD WO CONTRAST History: Numbness. Tingling left arm. Comparison: None. Technique: Noncontrast CT imaging was performed of the head. Exposure: One or more of the following individualized dose reduction techniques were utilized for this examination: 1. Automated exposure control 2. Adjustment of the mA and/or kV according to patient size 3. Use of iterative reconstruction technique. Findings: No intracranial hemorrhage. No mass effect. No hydrocephalus. Low-lying cerebellar tonsils. Imaged orbits are unremarkable. Imaged paranasal sinuses and mastoid air cells are clear. Impression: 1. No acute intracranial abnormality. 2. Low-lying cerebellar tonsils, may indicate Chiari I malformation. Electronically signed by: Aguilar Bryant DO (07/26/2019 9:30 PM) [facility]
--- NOTE | 2019-07-26 21:45 | PHYS DOC ---
Past Medical History Past Medical History: Anxiety, Asthma, GERD, Hypertension, Pneumonia (MARTA NULL APRN) Past Surgical History: , Other Additional Past Surgical Histo: CARPAL TUNEL (MARTA NULL APRN) Additional Information: 0.5 PPD Alcohol Use: None Drug Use: None (MARTA NULL APRN) Attending Signature I have participated in the care of this patient and I have reviewed and agree with all pertinent clinical information above including history, exam, and recommendations. (LUCAS NAVARRO MD) Adult General Chief Complaint Chief Complaint: CHEST PAIN HPI HPI Patient is a 29 year old female who presents with she began having aching in the left shoulder blade, left arm tight and tingling, left chest tightness and tingling and pressure. Patient states she will get short of air and began to sweat. Patient states she also has anxiety and asthma. Patient states she has an inhaler but hasn't tried her nebulizer machine because she does not have any solution for it. Patient states she is very anxious also. Patient rates her overall discomfort a 5 out of 10. (MARTA NULL APRN) Review of Systems Review of Systems Respiratory: Denies cough. +shortness of breath [] Cardiovascular: Left chest pain Musculoskeletal: Left arm numbness and tingling heaviness. Denies back pain or joint pain [] All other systems were reviewed and found to be within normal limits, except as documented in this note. (MARTA NULL APRN) Current Medications Current Medications Current Medications Medications (Trade) Dose Ordered Sig/Alex Start Time Stop Time Status Last Admin Dose Admin Albuterol Sulfate (Ventolin Neb Soln) 2.5 mg 1X ONCE 07/26/19 21:30 07/26/19 21:31 DC 07/26/19 21:12 2.5 MG Prednisone (Prednisone) 50 mg 1X ONCE 07/26/19 21:30 07/26/19 21:31 DC 07/26/19 21:12 50 MG Sodium Chloride 1,000 ml @ 1,000 mls/hr Q1H 07/26/19 21:30 07/26/19 22:29 DC 07/26/19 21:12 1,000 MLS/HR (LUCAS NAVARRO MD) Allergies Allergies Allergies Coded Allergies Type Severity Reaction Last Updated Verified cephalexin Allergy Unknown 12/27/17 Yes (LUCAS NAVARRO MD) Physical Exam Physical Exam Constitutional: Well developed, well nourished, no acute distress, non-toxic appearance. [] HENT: Normocephalic, atraumatic, bilateral external ears normal, oropharynx moist, no oral exudates, nose normal. [] Eyes: PERRLA, EOMI, conjunctiva normal, no discharge. [] Neck: Normal range of motion, no tenderness, supple, no stridor. [] Cardiovascular:Heart rate tachycardia regular rhythm, no murmur [] Lungs & Thorax: Bilateral breath sounds clear to auscultation [] Abdomen: Bowel sounds normal, soft, no tenderness, no masses, no pulsatile masses. [] Skin: Warm, dry, no erythema, no rash. [] Back: No tenderness, no CVA tenderness. [] Extremities: No tenderness, no cyanosis, no clubbing, ROM intact, no edema. [] Neurologic: Alert and oriented X 3, normal motor function, normal sensory function, no focal deficits noted. [] Psychologic: Affect normal, judgement normal, mood normal. [] (MARTA NULL APRN) Current Patient Data Vital Signs Vital Signs Date Time Temp Pulse Resp B/P (MAP) Pulse Ox O2 Delivery O2 Flow Rate FiO2 07/26/19 21:14 97 Room Air 07/26/19 20:44 88 16 132/64 (86) 07/26/19 19:53 98.2 98.2 (LUCAS NAVARRO MD) Lab Values Laboratory Tests Test 07/26/19 20:10 07/26/19 21:00 07/26/19 21:09 White Blood Count 11.1 x10^3/uL (4.0-11.0) H Red Blood Count 4.95 x10^6/uL (3.50-5.40) Hemoglobin 14.5 g/dL (12.0-15.5) Hematocrit 42.6 % (36.0-47.0) Mean Corpuscular Volume 86 fL (79-100) Mean Corpuscular Hemoglobin 29 pg (25-35) Mean Corpuscular Hemoglobin Concent 34 g/dL (31-37) Red Cell Distribution Width 13.4 % (11.5-14.5) Platelet Count 292 x10^3/uL (140-400) Neutrophils (%) (Auto) 66 % (31-73) Lymphocytes (%) (Auto) 22 % (24-48) L Monocytes (%) (Auto) 8 % (0-9) Eosinophils (%) (Auto) 4 % (0-3) H Basophils (%) (Auto) 1 % (0-3) Neutrophils # (Auto) 7.3 x10^3/uL (1.8-7.7) Lymphocytes # (Auto) 2.4 x10^3/uL (1.0-4.8) Monocytes # (Auto) 0.9 x10^3/uL (0.0-1.1) Eosinophils # (Auto) 0.4 x10^3/uL (0.0-0.7) Basophils # (Auto) 0.1 x10^3/uL (0.0-0.2) Prothrombin Time 12.9 SEC (11.7-14.0) Prothrombin Time INR 1.0 (0.8-1.1) D-Dimer (Carolann) 0.47 ug/mlFEU (0.00-0.50) Sodium Level 135 mmol/L (136-145) L Potassium Level 3.3 mmol/L (3.5-5.1) L Chloride Level 100 mmol/L (98-107) Carbon Dioxide Level 27 mmol/L (21-32) Anion Gap 8 (6-14) Blood Urea Nitrogen 8 mg/dL (7-20) Creatinine 0.7 mg/dL (0.6-1.0) Estimated GFR (Cockcroft-Gault) 97.6 BUN/Creatinine Ratio 11 (6-20) Glucose Level 148 mg/dL (70-99) H Calcium Level 8.8 mg/dL (8.5-10.1) Total Bilirubin 0.4 mg/dL (0.2-1.0) Aspartate Amino Transferase (AST) 13 U/L (15-37) L Alanine Aminotransferase (ALT) 28 U/L (14-59) Alkaline Phosphatase 78 U/L (46-116) Troponin I Quantitative < 0.017 ng/mL (0.000-0.055) Total Protein 7.6 g/dL (6.4-8.2) Albumin 3.7 g/dL (3.4-5.0) Albumin/Globulin Ratio 0.9 (1.0-1.7) L Lipase 106 U/L (73-393) Urine Color Yellow Urine Clarity Cloudy Urine pH 6.0 Urine Specific [place] 1.015 Urine Protein Negative mg/dL (NEG-TRACE) Urine Glucose (UA) Negative mg/dL (NEG) Urine Ketones (Stick) Negative mg/dL (NEG) Urine Blood Negative (NEG) Urine Nitrite Negative (NEG) Urine Bilirubin Negative (NEG) Urine Urobilinogen Dipstick 1.0 mg/dL (0.2 mg/dL) Urine Leukocyte Esterase Trace (NEG) Urine RBC 0 /HPF (0-2) Urine WBC 5-10 /HPF (0-4) Urine Squamous Epithelial Cells Occ /LPF Urine Bacteria 0 /HPF (0-FEW) Urine Mucus Slight /LPF POC Urine HCG, Qualitative Hcg negative (Negative) Laboratory Tests 07/26/19 20:10 Laboratory Tests 07/26/19 20:10 (LUCAS NAVARRO MD) EKG EKG Sinus tachycardia and no STEMI[] Interpretation Time: [address] Navarro (MARTA NULL APRN) Radiology/Procedures Radiology/Procedures [] (MARTA NULL APRN) Impressions: [address] [id number] IMAGING REPORT Signed PATIENT: LEXSI RODRIGUEZ RACCOUNT: [id number] : 1990 LOCATION: ER AGE: 29 SEX: F EXAM STATUS: REG ER ORD. PHYSICIAN: MARTA NULL APRN REASON: soa, chest pain PROCEDURE: CHEST PA & LATERAL CHEST PA LATERAL History: Chest pain. Shortness of breath. Comparison: November 10, 2018 Findings: No consolidation or pleural effusion. Normal heart size. Impression: 1. No acute cardiopulmonary process. Electronically signed by: Aguilar Bryant DO (07/26/2019 9:46 PM) [facility] DICTATED and SIGNED BY: AGUILAR BRYANT DO DATE: 07/26/19 [address] [facility] [address] [place], [place] [id number] IMAGING REPORT Signed PATIENT: LEXIS RODRIGUEZ RACCOUNT: [id number] : 1990 LOCATION: ER AGE: 29 SEX: F EXAM STATUS: REG ER ORD. PHYSICIAN: MARTA NULL APRN REASON: numbness, tingling LEFT ARM PROCEDURE: CT HEAD WO CONTRAST CT HEAD WO CONTRAST History: Numbness. Tingling left arm. Comparison: None. Technique: Noncontrast CT imaging was performed of the head. Exposure: One or more of the following individualized dose reduction techniques were utilized for this examination: 1. Automated exposure control 2. Adjustment of the mA and/or kV according to patient size 3. Use of iterative reconstruction technique. Findings: No intracranial hemorrhage. No mass effect. No hydrocephalus. Low-lying cerebellar tonsils. Imaged orbits are unremarkable. Imaged paranasal sinuses and mastoid air cells are clear. Impression: 1. No acute intracranial abnormality. 2. Low-lying cerebellar tonsils, may indicate Chiari I malformation. Electronically signed by: Aguilar Bryant DO (07/26/2019 9:30 PM) [facility] DICTATED and SIGNED BY: AGUILAR BRYANT DO DATE: 07/26/192129 (MARTA NULL APRN) Course & Med Decision Making Course & Med Decision Making Alert and oriented. Speaks in full clear senses. Skin pink warm and dry. NIH is negative area. PERRLA. Lungs are clear to auscultation all lobes. Chest pain is not reproducible with palpation. Chest x-ray shows sinus tachycardia without STEMI. Ambulatory with a steady gait. No extremity swelling. Patient is rating her overall discomfort a 5 out of 10. No back tenderness with palpation. No back pain with movement. Patient states her last 2 days she has been on Macrobid for a urinary tract infection. Patient states that the throbbing sharp pain radiates from the left shoulder blade down her outer arm. Patient denies abdominal pain, nausea, vomiting, diarrhea, fever, dizziness, headache, visual changes, numbness or tingling, weakness. Blood work is unremarkable. Chest x-ray shows no acute findings. Patient states she is feeling much better after the breathing treatment and prednisone. She states she has already on Zoloft for her anxiety. I have discussed this patient with Dr Navarro. (MARTA NULL APRN) Dragon Disclaimer Dragon Disclaimer This electronic medical record was generated, in whole or in part, using a voice recognition dictation system. (MARTA NULL APRN) The HEART Score for CP Pts HEART Score for Chest Pain: HEART Score for Chest Pain Response (Comments) Value History Slighlty/Non-Suspicious 0 ECG Normal 0 Age < 45 0 Risk Factors No Risk Factors 0 Troponin < Normal Limit 0 Total 0 Risk Factors: Risk Factors: DM, Current or recent (<one month) smoker, HTN, HLP, family history of CAD, obesity. Risk Scores: Score 0 - 3: 2.5% MACE over next 6 weeks - Discharge Home Score 4 - 6: 20.3% MACE over next 6 weeks - Admit for Clinical Observation Score 7 - 10: 72.7% MACE over next 6 weeks - Early Invasive Strategies (MARTA NULL APRN) NIHSS Stroke Scale NIH Stroke Scale: NIH Stroke Scale Response (Comments) Value Level of Consciousness: 0 Alert/Responsive 0 LOC Questions: 0 Answers both correctly 0 LOC Commands: 0 Performs both tasks 0 Best Gaze: 0 Normal 0 Visual: 0 No visual loss 0 Facial Palsy: 0 Normal, symmetrical 0 Motor - Left Arm 0 No drift 0 Motor - Right Arm 0 No drift 0 Motor - Left Leg 0 No drift 0 Motor: Right Leg 0 No drift 0 Limb Ataxia: 0 Absent 0 Sensory: 0 No loss 0 Best Language: 0 Normal 0 Dysathria: 0 Normal 0 Extinction and Inattention: 0 Normal 0 Total 0 Departure Departure Impression: Primary Impression: Asthma Additional Impression: Anxiety Disposition: 01 HOME, SELF-CARE Condition: STABLE Referrals: NO PCP (PCP) Patient Instructions: Anxiety and Panic Attacks, Asthma, Adult Additional Instructions: Follow-up with primary care provider. Use medications as prescribed. Scripts Albuterol Sulfate (PROAIR HFA INHALER) 8.5 Gm Hfa.aer.ad 1 PUFF INH PRN Q6HRS PRN for SHORTNESS OF BREATH, #1 INHALER 0 Refills Prov: MARTA NULL APRN 07/26/19 Methylprednisolone (MEDROL) 4 Mg Tab.ds.pk 1 PKG PO UD, #1 PKG Prov: MARTA NULL APRN 07/26/19 Albuterol Sulfate (ALBUTEROL SULFATE NEB SOLN) 2.5 Mg/3 Ml Vial.neb 1 VIAL NEB PRN Q4HRS, #50 VIAL Prov: MARTA NULL APRN 07/26/19 Problem Qualifiers Primary Impression: Asthma Asthma severity: mild Asthma persistence: intermittent Asthma complication type: uncomplicated Qualified Codes: J45.20 - Mild intermittent asthma, uncomplicated MARTA NULL APRN Jul 26, 2019 21:45 LUCAS NAVARRO MD Jul 27, 2019 04:57
--- NOTE | 2019-07-26 21:49 | RAD ---
CHEST PA LATERAL History: Chest pain. Shortness of breath. Comparison: November 10, 2018 Findings: No consolidation or pleural effusion. Normal heart size. Impression: 1. No acute cardiopulmonary process. Electronically signed by: Aguilar rByant DO (07/26/2019 9:46 PM) [facility]
[2019-07-26] MEDS ORDERED: ALBU2.5V5 NEB (22:50)
[2019-07-26] MEDS ORDERED: METH4TAB2 PO (22:50)
[2019-07-26] MEDS ORDERED: ALBU2.5V8 INH (22:50)
--- NOTE | 2019-07-27 07:05 | EKG ---
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
== END 2019-07-26 22:58 | disposition home or self-care (01) ==
LOC: ER 19:52
DX: J45.20 Mild intermittent asthma, uncomplicated (principal); F41.9 Anxiety disorder, unspecified; R07.89 Other chest pain; M25.512 Pain in left shoulder; R20.2 Paresthesia of skin; K21.9 Gastro-esophageal reflux disease without esophagitis; I10 Essential (primary) hypertension; F17.200 Nicotine dependence, unspecified, uncomplicated; Z88.1 Allergy status to other antibiotic agents
CPT/HCPCS: 36415; 70450; 71046; 80053; 81001; 81025; 83690; 84484; 85025; 85379; 85610; 87086; 93005; 94640; 99285; J7030; J7512; J7613

== ENCOUNTER 2020-09-19 21:37 | Emergency (ER) | payer MEDICAID ==
[~2020-09-19] VITALS: Ht 162.6 cm; Wt 113.6 kg
[~2020-09-19 21:37] MED LIST changes: +ALBU2.5V5 NEB; +METH4TAB2 PO; -OMEP-229 PO; +OMEP20CA16 PO
[2020-09-19 22:07] LABS: BASO # 0.1 x10^3/uL (0.0-0.2); BASO % 1 % (0-3); EOS # 0.4 x10^3/uL (0.0-0.7); EOS % 3 % (0-3); HEMATOCRIT 42.3 % (36.0-47.0); HEMOGLOBIN 14.8 g/dL (12.0-15.5); LYMPH # 3.2 x10^3/uL (1.0-4.8); LYMPH % 25 % (24-48); MEAN CORPUSCULAR HEMOGLOBIN 30 pg (25-35); MEAN CORPUSCULAR HGB CONC 35 g/dL (31-37); MEAN CORPUSCULAR VOLUME 87 fL (79-100); MONO % 8 % (0-9); NEUT # 8.2 x10^3/uL (1.8-7.7); NEUT % 64 % (31-73); PLATELET COUNT 294 x10^3/uL (140-400); RED BLOOD COUNT 4.89 x10^6/uL (3.50-5.40); RED CELL DISTRIBUTION WIDTH 13.4 % (11.5-14.5); WHITE BLOOD COUNT 12.9 x10^3/uL (4.0-11.0)
[2020-09-19 22:22] LABS: CALCIUM 9.1 mg/dL (8.5-10.1); CREATININE 0.6 mg/dL (0.6-1.0); GFR 115.9; POTASSIUM 3.7 mmol/L (3.5-5.1)
[2020-09-19 22:27] LABS: ALBUMIN 3.7 g/dL (3.4-5.0); ALBUMIN/GLOBULIN RATIO 1.1 (1.0-1.7); TOTAL BILIRUBIN 0.2 mg/dL (0.2-1.0); TOTAL PROTEIN 7.1 g/dL (6.4-8.2)
[2020-09-19 22:37] LABS: CREATINE KINASE 50 U/L (26-192)
[2020-09-19 23:11] LABS: BILIRUBIN,URINE NEGATIVE (NEG); CLARITY,URINE CLEAR; COLOR,URINE YELLOW; NITRITE,URINE NEGATIVE (NEG); PROTEIN,URINE NEGATIVE (NEG-TRACE)
[2020-09-19 23:20] LABS: BACTERIA,URINE 0 /HPF (0-FEW); RBC,URINE OCC /HPF (0-2); WBC,URINE OCC /HPF (0-4)
[2020-09-19] MEDS ORDERED: LIDO:MAALOX 1:1 20 ML SINGLE DOSE. SWSW ONE (23:30)
--- NOTE | 2020-09-19 23:33 | ED.ADGEN ---
Past Medical History Past Medical History: Anxiety, Asthma, GERD, Hypertension, Pneumonia Past Surgical History: , Other Additional Past Surgical Histo: CARPAL TUNEL Smoking Status: Current Every Day Smoker Alcohol Use: Occasionally Drug Use: None General Adult EDM: Chief Complaint: CHEST PAIN HPI: HPI: Patient is a 30 year old female who presents to the emergency department with complaints of substernal chest pain that radiated to her left shoulder and through to her back after eating pizza this evening. Patient states that she ate some pepperoni pizza at approximately 1800 this evening shortly thereafter she began to have the pressure in her chest and noticed that the pain was radiating through to her back into her left shoulder. She denies any nausea, vomiting, wheezing, cough, body aches, fever, fatigue, palpitations, edema, abdominal pain, or diarrhea. She states that the pain made her feel like she was short of breath, but she denies any wheezing. Patient denies any known COVID-19 exposure. She does report a history of GERD she takes omeprazole and ranitidine for daily. Patient denies missing any dosages of her medications. She reports that she does smoke less than a pack of cigarettes a day. She currently rates her pain a 5 out of 10 on the pain scale, she denies any alleviating or exacerbating factors. Review of Systems: Review of Systems: Complete ROS is negative unless otherwise noted in HPI. Current Medications: Current Medications Medications (Trade) Dose Ordered Sig/Alex Start Time Stop Time Status Last Admin Dose Admin Multi-Ingredient Mouthwash/Gargle (Gi Cocktail) 20 ml 1X ONCE 09/19/20 23:30 09/19/20 23:31 DC 09/19/20 22:58 20 ML Allergies: Allergies: Allergies Coded Allergies Type Severity Reaction Last Updated Verified cephalexin Allergy Intermediate 09/19/20 Yes Physical Exam: PE: See Above Constitutional: Well developed, well nourished, no acute distress, non-toxic appearance, obese. [] HENT: Normocephalic, atraumatic, bilateral external ears normal, nose normal. [] Eyes: PERRLA, EOMI, conjunctiva normal, no discharge. [] Neck: Normal range of motion, no stridor. [] Cardiovascular:Heart rate regular rhythm, nontender Lungs & Thorax: Respirations even and unlabored, no retractions, no respiratory distress Abdomen: soft, no tenderness, no guarding, no palpable mass Skin: Warm, dry, no erythema, no rash. [] Extremities: No cyanosis, ROM intact, no edema. [] Neurologic: Alert and oriented X 3, no focal deficits noted. [] Psychologic: Affect normal, judgement normal, mood normal. [] Current Patient Data: Labs: Laboratory Tests Test 09/19/20 21:54 09/19/20 23:03 White Blood Count 12.9 x10^3/uL (4.0-11.0) H Red Blood Count 4.89 x10^6/uL (3.50-5.40) Hemoglobin 14.8 g/dL (12.0-15.5) Hematocrit 42.3 % (36.0-47.0) Mean Corpuscular Volume 87 fL (79-100) Mean Corpuscular Hemoglobin 30 pg (25-35) Mean Corpuscular Hemoglobin Concent 35 g/dL (31-37) Red Cell Distribution Width 13.4 % (11.5-14.5) Platelet Count 294 x10^3/uL (140-400) Neutrophils (%) (Auto) 64 % (31-73) Lymphocytes (%) (Auto) 25 % (24-48) Monocytes (%) (Auto) 8 % (0-9) Eosinophils (%) (Auto) 3 % (0-3) Basophils (%) (Auto) 1 % (0-3) Neutrophils # (Auto) 8.2 x10^3/uL (1.8-7.7) H Lymphocytes # (Auto) 3.2 x10^3/uL (1.0-4.8) Monocytes # (Auto) 1.0 x10^3/uL (0.0-1.1) Eosinophils # (Auto) 0.4 x10^3/uL (0.0-0.7) Basophils # (Auto) 0.1 x10^3/uL (0.0-0.2) D-Dimer (Carolann) 0.37 ug/mlFEU (0.00-0.50) Sodium Level 137 mmol/L (136-145) Potassium Level 3.7 mmol/L (3.5-5.1) Chloride Level 101 mmol/L (98-107) Carbon Dioxide Level 27 mmol/L (21-32) Anion Gap 9 (6-14) Blood Urea Nitrogen 11 mg/dL (7-20) Creatinine 0.6 mg/dL (0.6-1.0) Estimated GFR (Cockcroft-Gault) 115.9 BUN/Creatinine Ratio 18 (6-20) Glucose Level 130 mg/dL (70-99) H Calcium Level 9.1 mg/dL (8.5-10.1) Magnesium Level 2.0 mg/dL (1.8-2.4) Total Bilirubin 0.2 mg/dL (0.2-1.0) Aspartate Amino Transferase (AST) 21 U/L (15-37) Alanine Aminotransferase (ALT) 45 U/L (14-59) Alkaline Phosphatase 78 U/L (46-116) Creatine Kinase 50 U/L (26-192) Creatine Kinase MB (Mass) < 0.5 ng/mL (0.0-3.6) Creatine Kinase MB Relative Index % (0-4) Troponin I Quantitative < 0.017 ng/mL (0.000-0.055) Total Protein 7.1 g/dL (6.4-8.2) Albumin 3.7 g/dL (3.4-5.0) Albumin/Globulin Ratio 1.1 (1.0-1.7) Lipase 92 U/L (73-393) Urine Collection Type Unknown Urine Color Yellow Urine Clarity Clear Urine pH 6.0 (<5.0-8.0) Urine Specific [place] 1.020 (1.000-1.030) Urine Protein Negative mg/dL (NEG-TRACE) Urine Glucose (UA) Negative mg/dL (NEG) Urine Ketones (Stick) Negative mg/dL (NEG) Urine Blood Negative (NEG) Urine Nitrite Negative (NEG) Urine Bilirubin Negative (NEG) Urine Urobilinogen Dipstick 1.0 mg/dL (0.2 mg/dL) Urine Leukocyte Esterase Negative (NEG) Urine RBC Occ /HPF (0-2) Urine WBC Occ /HPF (0-4) Urine Squamous Epithelial Cells Mod /LPF Urine Bacteria 0 /HPF (0-FEW) Laboratory Tests 09/19/20 21:54 Laboratory Tests 09/19/20 21:54 Vital Signs: Vital Signs Date Time Temp Pulse Resp B/P (MAP) Pulse Ox O2 Delivery O2 Flow Rate FiO2 09/19/20 23:09 82 17 96/52 (67) 97 Room Air 09/19/20 21:43 99.3 99.3 EKG: EK-sinus rhythm rate 97, no STEMI, read by Dr. Corona Heart Score: HEART Score for Chest Pain: HEART Score for Chest Pain Response (Comments) Value History Slighlty/Non-Suspicious 0 ECG Normal 0 Age < 45 0 Risk Factors >3 Risk Factors or Hx CAD 2 Troponin < Normal Limit 0 Total 2 Risk Factors: Risk Factors: DM, Current or recent (<one month) smoker, HTN, HLP, family history of CAD, obesity. Risk Scores: Score 0 - 3: 2.5% MACE over next 6 weeks - Discharge Home Score 4 - 6: 20.3% MACE over next 6 weeks - Admit for Clinical Observation Score 7 - 10: 72.7% MACE over next 6 weeks - Early Invasive Strategies Radiology/Procedures: Radiology/Procedures: Chest x-ray unremarkable read by Dr. Corona PROCEDURE: CHEST AP ONLY XR CHEST 1V Clinical Indication: Reason: chest pain / Spl. Instructions: / History: Comparison: Two-view chest July 26, 2019. Findings: The cardiomediastinal silhouette is normal. Lungs are clear. There is no pneumothorax. No pleural effusion is appreciated. No acute bone abnormality. IMPRESSION: No acute cardiopulmonary process. Course & Med Decision Making: Course & Med Decision Making Pertinent Labs and Imaging studies reviewed. (See chart for details) 30-year-old female presents emergency department with substernal chest pain that radiated through to her back into her left shoulder. Work-up included EKG, chest x-ray, labs, and medication. EKG revealed no acute findings, chest x-ray was also negative for any acute findings. CBC revealed a white blood cell count of 12.9 otherwise unremarkable; patient's D-dimer was within normal limits; CMP revealed glucose of 130 otherwise unremarkable, patient's troponin and CK index were not elevated, lipase was within normal limits; UA was unremarkable. Patient was given a GI cocktail in the emergency department she reported relief of her pain after this medication. The patient's heart score was a 2, I have a low suspicion for her pain to her be of cardiac nature. I recommended that the patient follow bland diet and take her medications for her GERD as previously prescribed. Encouraged her to follow-up with her primary care doctor on Tuesday, return to the ER if symptoms worsen or fever develop. Patient verbalized an understanding of home care, medications, follow-up, and return to ED instructions and was in agreement with the plan of care. [] Errol Disclaimer: Errol Disclaimer: This electronic medical record was generated, in whole or in part, using a voice recognition dictation system. Departure Departure Impression: Primary Impression: Atypical chest pain Disposition: 01 DC HOME SELF CARE/HOMELESS Condition: STABLE Referrals: NO PCP (PCP) Patient Instructions: Chest Pain (Nonspecific), [id number], Diet for Gastroesophageal Reflux Disease, Adult, [id number] Additional Instructions: Continue taking your medications for your reflux disease. Follow the diet instructions provided. Follow-up with your primary care doctor next week for repeat evaluation, return to the ER if your symptoms worsen. Jacob [facility] [address] [place] [address] [facility] [address] [place] [address] [facility] [address] [facility] [place] [address] [facility] [address] [place] [address] [facility] [address] [place] [address] [facility] [address] [place] [address] [facility] [address] [place] [address] [facility] [address] [place] [address] [facility] [address] [place] [address] [facility] [address] [place] [address] EVERARDO DOCKERY APRN Sep 19, 2020 23:33
[2020-09-19 23:38] VITALS: BP 100/55
--- NOTE | 2020-09-19 23:40 | RAD ---
XR CHEST 1V Clinical Indication: Reason: chest pain / Spl. Instructions: / History: Comparison: Two-view chest July 26, 2019. Findings: The cardiomediastinal silhouette is normal. Lungs are clear. There is no pneumothorax. No pleural eff usion is appreciated. No acute bone abnormality. IMPRESSION: No acute cardiopulmonary process. Electronically signed by: Waldemar Valentin MD (09/19/2020 11:38 PM) [facility]
--- NOTE | 2020-09-20 02:20 | EKG ---
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
== END 2020-09-19 23:38 | disposition home or self-care (01) ==
LOC: ER 21:37
DX: R07.2 Precordial pain (principal); M25.512 Pain in left shoulder; J45.909 Unspecified asthma, uncomplicated; K21.9 Gastro-esophageal reflux disease without esophagitis; I10 Essential (primary) hypertension; F17.200 Nicotine dependence, unspecified, uncomplicated; Z88.1 Allergy status to other antibiotic agents
CPT/HCPCS: 36415; 71045; 80053; 81001; 82553; 83690; 83735; 84484; 85025; 85379; 93005; 99285-25

== ENCOUNTER 2021-07-22 17:45 | Emergency (ER) | payer MEDICAID ==
[~2021-07-22] VITALS: Ht 162.6 cm; Wt 118.0 kg
[2021-07-22] MEDS ORDERED: NITROGLYCERIN SUBLINGUAL 0.4 MG BOTTLE OF 25. SL PRN (21:15)
[2021-07-22] MEDS ORDERED: DEXAMETHASONE SOD PHOS 20 MG/5 ML VIAL. IV ONE (21:15)
[2021-07-22] MEDS ORDERED: MORPHINE SULFATE 2 MG/ML INJ. IV/SQ PRN (21:15)
[2021-07-22] MEDS ORDERED: ASPIRIN 325 MG TABLET PO ONE (21:30)
--- NOTE | 2021-07-22 22:11 | RAD ---
Exam: Chest one view INDICATION: Chest pain TECHNIQUE: Frontal view of the chest Comparisons: 09/19/2020 FINDINGS: The cardiomediastinal silhouette and pulmonary vessels are within normal limits. The lung and pleural spaces are clear. IMPRESSION: No acute cardiopulmonary process. Electronically signed by: Gretel Thompson MD (07/22/2021 10:08 PM) [facility]
[2021-07-22 22:29] LABS: BILIRUBIN,URINE NEGATIVE (NEG); CLARITY,URINE CLOUDY; COLOR,URINE YELLOW; NITRITE,URINE NEGATIVE (NEG); PROTEIN,URINE NEGATIVE (NEG-TRACE)
[2021-07-22 22:40] LABS: BACTERIA,URINE FEW /HPF (0-FEW); RBC,URINE RARE /HPF (0-2)
[2021-07-22 22:41] LABS: BASO # 0.1 x10^3/uL (0.0-0.2); BASO % 1 % (0-3); EOS # 0.3 x10^3/uL (0.0-0.7); EOS % 5 % (0-3); HEMATOCRIT 42.1 % (36.0-47.0); HEMOGLOBIN 14.4 g/dL (12.0-15.5); LYMPH # 2.5 x10^3/uL (1.0-4.8); LYMPH % 34 % (24-48); MEAN CORPUSCULAR HEMOGLOBIN 30 pg (25-35); MEAN CORPUSCULAR HGB CONC 34 g/dL (31-37); MEAN CORPUSCULAR VOLUME 87 fL (79-100); MONO # 0.8 x10^3/uL (0.0-1.1); MONO % 11 % (0-9); NEUT # 3.7 x10^3/uL (1.8-7.7); NEUT % 49 % (31-73); PLATELET COUNT 274 x10^3/uL (140-400); RED BLOOD COUNT 4.85 x10^6/uL (3.50-5.40); RED CELL DISTRIBUTION WIDTH 12.9 % (11.5-14.5); WHITE BLOOD COUNT 7.5 x10^3/uL (4.0-11.0)
[2021-07-22 22:49] LABS: AMPHETAMINE/METHAMPHETAMINE NEG (NEG); BARBITURATES NEG (NEG); BENZODIAZEPINES NEG (NEG); CANNABINOIDS NEG (NEG); COCAINE NEG (NEG); METHADONE NEG (NEG); OPIATES NEG (NEG); PHENCYCLIDINE NEG (NEG)
[2021-07-22 22:51] LABS: CALCIUM 8.8 mg/dL (8.5-10.1); CREATININE 0.6 mg/dL (0.6-1.0); GFR 115.1; POTASSIUM 3.6 mmol/L (3.5-5.1)
[2021-07-22 22:56] LABS: ALBUMIN 3.5 g/dL (3.4-5.0); MAGNESIUM 2.2 mg/dL (1.8-2.4); TOTAL BILIRUBIN 0.2 mg/dL (0.2-1.0); TOTAL PROTEIN 7.1 g/dL (6.4-8.2)
--- NOTE | 2021-07-22 22:59 | PHYS DOC ---
Past Medical History Past Medical History: Anxiety, Asthma, GERD, Hypertension, Pneumonia Past Surgical History: , Other Additional Past Surgical Histo: CARPAL TUNEL Smoking Status: Current Every Day Smoker Alcohol Use: Occasionally Drug Use: None General Adult EDM: Chief Complaint: FLU SYMPTOM HPI: HPI: Patient is a 31 year old female with history of anxiety, hypertension, acid reflux, who presents to the ED today with multiple complaints. Patient states on Tuesday she had a cough, nasal congestion and a headache. She also states she has some vomiting and diarrhea. Denies any abdominal pain she states she did a home Covid test on Tuesday which was positive. She states today she started developing chest tightness. Patient denies actual chest pain. Denies anything specifically exacerbating or relieving her symptoms. She states her is admitted in the hospital with COVID19. She states she was vaccinated against Covid by the did not get a vaccine. Review of Systems: Review of Systems: Constitutional: Denies fever or chills. [] Eyes: Denies change in visual acuity. [] HENT: Reports nasal congestion, denies sore throat. [] Respiratory: Reports cough, denies shortness of breath. [] Cardiovascular: Reports chest tightness, denies any chest pain GI: Denies abdominal pain, nausea, vomiting, bloody stools or diarrhea. [] : Denies dysuria. [] Musculoskeletal: Denies back pain or joint pain. [] Integument: Denies rash. [] Neurologic: Reports headache, denies focal weakness or sensory changes. [] ] Psychiatric: Denies depression or anxiety. [] Heart Score: C/O Chest Pain: N/A Risk Factors: Risk Factors: DM, Current or recent (<one month) smoker, HTN, HLP, family history of CAD, obesity. Risk Scores: Score 0 - 3: 2.5% MACE over next 6 weeks - Discharge Home Score 4 - 6: 20.3% MACE over next 6 weeks - Admit for Clinical Observation Score 7 - 10: 72.7% MACE over next 6 weeks - Early Invasive Strategies Current Medications: Current Medications Medications (Trade) Dose Ordered Sig/Alex Start Time Stop Time Status Last Admin Dose Admin Aspirin (Gwendolyn Aspirin) 325 mg 1X ONCE 07/22/21 21:30 07/22/21 21:31 DC 12/1/21 22:40 325 MG Dexamethasone Sodium Phosphate (Decadron) 10 mg 1X ONCE 07/22/21 21:15 07/22/21 21:16 DC 07/22/21 22:41 10 MG Morphine Sulfate (Morphine Sulfate) 2 mg PRN Q15MIN PRN 07/22/21 21:15 07/23/21 21:14 Nitroglycerin (Nitrostat) 0.4 mg PRN Q5MIN PRN 07/22/21 21:15 07/23/21 21:14 Allergies: Allergies: Allergies Coded Allergies Type Severity Reaction Last Updated Verified cephalexin Allergy Intermediate 09/19/20 Yes Physical Exam: PE: Constitutional: Well developed, well nourished, no acute distress, non-toxic appearance. [] HENT: Normocephalic, atraumatic, bilateral external ears normal, oropharynx moist, no oral exudates, nose normal. [] Eyes: PERRLA, EOMI, conjunctiva normal, no discharge. [] Neck: Normal range of motion, no tenderness, supple, no stridor. [] Cardiovascular:Heart rate regular rhythm, no murmur [] Lungs & Thorax: Bilateral breath sounds clear to auscultation [] Abdomen: Bowel sounds normal, soft, no tenderness, no masses, no pulsatile masses. [] Skin: Warm, dry, no erythema, no rash. [] Back: No tenderness, no CVA tenderness. [] Extremities: No tenderness, no cyanosis, no clubbing, ROM intact, no edema. [] Neurologic: Alert and oriented X 3, normal motor function, normal sensory function, no focal deficits noted. [] Psychologic: Affect normal, judgement normal, mood normal. [] Current Patient Data: Labs: Laboratory Tests Test 07/22/21 22:05 07/22/21 22:19 07/22/21 22:30 Urine Collection Type Unknown Urine Color Yellow Urine Clarity Cloudy Urine pH 6.0 (<5.0-8.0) Urine Specific [place] 1.025 (1.000-1.030) Urine Protein Negative mg/dL (NEG-TRACE) Urine Glucose (UA) Negative mg/dL (NEG) Urine Ketones (Stick) Negative mg/dL (NEG) Urine Blood Negative (NEG) Urine Nitrite Negative (NEG) Urine Bilirubin Negative (NEG) Urine Urobilinogen Dipstick 1.0 mg/dL (0.2 mg/dL) Urine Leukocyte Esterase Moderate (NEG) Urine RBC Rare /HPF (0-2) Urine WBC 5-10 /HPF (0-4) Urine Squamous Epithelial Cells Mod /LPF Urine Bacteria Few /HPF (0-FEW) Urine Mucus Slight /LPF Urine Opiates Screen Neg (NEG) Urine Methadone Screen Neg (NEG) Urine Barbiturates Neg (NEG) Urine Phencyclidine Screen Neg (NEG) Urine Amphetamine/Methamphetamine Neg (NEG) Urine Benzodiazepines Screen Neg (NEG) Urine Cocaine Screen Neg (NEG) Urine Cannabinoids Screen Neg (NEG) Urine Ethyl Alcohol Neg (NEG) POC Urine HCG, Qualitative Hcg negative (Negative) White Blood Count 7.5 x10^3/uL (4.0-11.0) Red Blood Count 4.85 x10^6/uL (3.50-5.40) Hemoglobin 14.4 g/dL (12.0-15.5) Hematocrit 42.1 % (36.0-47.0) Mean Corpuscular Volume 87 fL (79-100) Mean Corpuscular Hemoglobin 30 pg (25-35) Mean Corpuscular Hemoglobin Concent 34 g/dL (31-37) Red Cell Distribution Width 12.9 % (11.5-14.5) Platelet Count 274 x10^3/uL (140-400) Neutrophils (%) (Auto) 49 % (31-73) Lymphocytes (%) (Auto) 34 % (24-48) Monocytes (%) (Auto) 11 % (0-9) H Eosinophils (%) (Auto) 5 % (0-3) H Basophils (%) (Auto) 1 % (0-3) Neutrophils # (Auto) 3.7 x10^3/uL (1.8-7.7) Lymphocytes # (Auto) 2.5 x10^3/uL (1.0-4.8) Monocytes # (Auto) 0.8 x10^3/uL (0.0-1.1) Eosinophils # (Auto) 0.3 x10^3/uL (0.0-0.7) Basophils # (Auto) 0.1 x10^3/uL (0.0-0.2) Sodium Level 137 mmol/L (136-145) Potassium Level 3.6 mmol/L (3.5-5.1) Chloride Level 101 mmol/L (98-107) Carbon Dioxide Level 29 mmol/L (21-32) Anion Gap 7 (6-14) Blood Urea Nitrogen 7 mg/dL (7-20) Creatinine 0.6 mg/dL (0.6-1.0) Estimated GFR (Cockcroft-Gault) 115.1 BUN/Creatinine Ratio 12 (6-20) Glucose Level 101 mg/dL (70-99) H Calcium Level 8.8 mg/dL (8.5-10.1) Magnesium Level Pending Total Bilirubin Pending Aspartate Amino Transferase (AST) Pending Alanine Aminotransferase (ALT) Pending Alkaline Phosphatase Pending Total Protein Pending Albumin Pending Albumin/Globulin Ratio Pending Laboratory Tests 07/22/21 22:30 Laboratory Tests 07/22/21 22:30 Vital Signs: Vital Signs Date Time Temp Pulse Resp B/P (MAP) Pulse Ox O2 Delivery O2 Flow Rate FiO2 07/22/21 22:26 84 18 122/58 (79) 95 Room Air 07/22/21 21:00 98.2 98.2 EKG: EK interpreted by Dr. Espino sinus rhythm heart rate 87 no STEMI [] Radiology/Procedures: Radiology/Procedures: []PROCEDURE: PORTABLE CHEST 1V Exam: Chest one view INDICATION: Chest pain TECHNIQUE: Frontal view of the chest Comparisons: 09/19/2020 FINDINGS: The cardiomediastinal silhouette and pulmonary vessels are within normal limits. The lung and pleural spaces are clear. IMPRESSION: No acute cardiopulmonary process. Electronically signed by: Gretel Stack MD (07/22/2021 10:08 PM) [facility] DICTATED and SIGNED BY: GRETEL STACK MD DATE: 07/22/21 [id number] 0 Course & Med Decision Making: Course & Med Decision Making Pertinent Labs and Imaging studies reviewed. (See chart for details) This is a 31-year-old female patient presented to the ED today with multiple complaints. Patient is complaining of headache, cough, nasal congestion, diarrhea, vomiting, and chest tightness. Symptoms began on Tuesday. She is positive for COVID-19 diagnosed on Tuesday. Vitals on arrival to the ED temperature 98.2, heart rate 98, respirations 16, blood pressure 142/92, O2 sats 99% on room air. EKG is negative, chest x-ray is negative. CBC, CMP, high-sensitivity troponin are negative UA positive for UTI. Discharged on Bactrim. Follow-up with PCP in the course of this week. Provided return precautions. Errol Disclaimer: Errol Disclaimer: This electronic medical record was generated, in whole or in part, using a voice recognition dictation system. Departure Departure Impression: Primary Impression: UTI (lower urinary tract infection) Additional Impressions: Lab test positive for detection of COVID-19 virus Cough URI (upper respiratory infection) Qualified Codes: J06.9 - Acute upper respiratory infection, unspecified Vomiting Qualified Codes: R11.10 - Vomiting, unspecified Diarrhea Qualified Codes: R19.7 - Diarrhea, unspecified Disposition: 01 HOME / SELF CARE / HOMELESS Condition: STABLE Referrals: NO PCP (PCP) follow up in one week Patient Instructions: Cough, Adult, [id number], Urinary Tract Infection Additional Instructions: You were evaluated in the emergency room, your cardiac work-up is negative, your chest x-ray is negative for any acute findings, your lab work was negative for any acute findings, you have urinary tract infection. Please take the presc ribed antibiotics as ordered until completed. You can take Tylenol/ Motrin for pain or fever. Follow-up with your doctor next week. Quarantine yourself for 10 days considering you are positive for Covid Scripts Ondansetron (ONDANSETRON ODT) 4 Mg Tab.rapdis 1 TAB PO PRN Q6-8HRS, #16 TAB Prov: SIVAKUMAR AGUILAR [employer] 07/22/21 Sulfamethoxazole/Trimethoprim (BACTRIM 400-80 MG TABLET) 1 Each Tablet 1 TAB PO BID for 7 Days, #14 TAB 0 Refills Prov: SIVAKUMAR AGUILAR [employer] 07/22/21 SIVAKUMAR AGUILAR [employer] REPAIRER Jul 22, 2021 22:59
[2021-07-22 23:19] VITALS: BP 118/59
[2021-07-22] MEDS ORDERED: SULF1TAB23 PO (23:22)
[2021-07-22] MEDS ORDERED: ONDA4TAB12 PO (23:24)
--- NOTE | 2021-07-23 06:40 | EKG ---
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
== END 2021-07-22 23:30 | disposition home or self-care (01) ==
LOC: ER 17:45
DX: N39.0 Urinary tract infection, site not specified (principal); J06.9 Acute upper respiratory infection, unspecified; R11.2 Nausea with vomiting, unspecified; R19.7 Diarrhea, unspecified; J45.909 Unspecified asthma, uncomplicated; K21.9 Gastro-esophageal reflux disease without esophagitis; I10 Essential (primary) hypertension; F17.200 Nicotine dependence, unspecified, uncomplicated; Z88.1 Allergy status to other antibiotic agents
CPT/HCPCS: 36415; 71045; 80053; 80307; 81001; 81025; 83735; 83880; 84443; 84484; 85025; 87086; 93005; 96374; 99285; J1100

== ENCOUNTER 2021-09-10 15:33 | Emergency (ER) | payer MEDICAID ==
[~2021-09-10] VITALS: Ht 162.6 cm; Wt 115.1 kg
[~2021-09-10 15:33] MED LIST changes: +ONDA4TAB12 PO; +SULF1TAB23 PO
[2021-09-10 15:50] VITALS: BP 143/62
[2021-09-10] MEDS ORDERED: magic mouthwash PO (16:06)
[2021-09-10] MEDS ORDERED: AMOX500C PO (16:06)
--- NOTE | 2021-09-10 16:07 | PHYS DOC ---
Past Medical History Past Medical History: Anxiety, Asthma, GERD, Hypertension, Pneumonia Past Surgical History: , Other Additional Past Surgical Histo: CARPAL TUNEL Smoking Status: Never Smoker Alcohol Use: None Drug Use: None General Adult EDM: Chief Complaint: SORE THROAT HPI: HPI: Patient is a 31-year-old female who presents to the emergency department today for sore throat, nonproductive cough, fever, headache that started 1 day ago. Patient reports that she is taken ibuprofen prior to arrival. Patient denies any loss of taste or smell, nausea, vomiting, abdominal pain, shortness of breath. Review of Systems: Review of Systems: Constitutional: negative unless reported in HPI Eyes: negative unless reported in HPI HENT: negative unless reported in HPI Respiratory: negative unless reported in HPI Cardiovascular: negative unless reported in HPI GI: negative unless reported in HPI : negative unless reported in HPI Musculoskeletal: negative unless reported in HPI Integument: negative unless reported in HPI Neurologic: negative unless reported in HPI Endocrine: negative unless reported in HPI Lymphatic: negative unless reported in HPI Psychiatric: negative unless reported in HPI Heart Score: C/O Chest Pain: N/A Risk Factors: Risk Factors: DM, Current or recent (<one month) smoker, HTN, HLP, family history of CAD, obesity. Risk Scores: Score 0 - 3: 2.5% MACE over next 6 weeks - Discharge Home Score 4 - 6: 20.3% MACE over next 6 weeks - Admit for Clinical Observation Score 7 - 10: 72.7% MACE over next 6 weeks - Early Invasive Strategies Allergies: Allergies: Allergies Coded Allergies Type Severity Reaction Last Updated Verified cephalexin Allergy Intermediate 09/19/20 Yes Physical Exam: PE: Constitutional: Well developed, well nourished, no acute distress, non-toxic appearance. [] HENT: Normocephalic, atraumatic, bilateral external ears normal, oropharynx moist, 3+ tonsillar enlargement with exudate, erythematous oropharynx, uvula midline, no trismus, no phonation changes, patient maintaining secretions,, nose normal. [] Eyes: PERRL, EOMI, conjunctiva normal, no discharge. [] Neck: Normal range of motion, no tenderness, supple, no stridor. [] Cardiovascular:Heart rate tachycardic rhythm, no murmur [] Lungs & Thorax: Bilateral breath sounds clear to auscultation [] Abdomen: Bowel sounds normal, soft, no tenderness, no masses, no pulsatile masses. [] Skin: Warm, dry, no erythema, no rash. [] Back: Normal range of motion Extremities: No tenderness, no cyanosis, no clubbing, ROM intact, no edema. [] Neurologic: Alert and oriented X 3, normal motor function, normal sensory function, no focal deficits noted. [] Psychologic: Affect normal, judgement normal, mood normal. [] EKG: EKG: [] Radiology/Procedures: Radiology/Procedures: [] Course & Med Decision Making: Course & Med Decision Making Pertinent Labs and Imaging studies reviewed. (See chart for details) [] Patient presents to the emergency department for sore throat, cough, fever, headache that started 1 day ago. Patient be tested for COVID-19 you will be notified of those results when they become available. She is advised to self isolate. Her rapid strep test was negative. Due to patient's presentation, she will be treated for strep throat with an antibiotic. She is requesting Magic mouthwash and this was prescribed for her. Patient had a temperature of 100.3 and she will be treated with Tylenol. She is advised to take Tylenol and ibuprofen at home. I discussed with patient all findings and diagnostic testing as well as the need to follow-up with PCP for further evaluation and treatment or return to the ER if any new or worsening symptoms. Strict return precautions were also discussed at length. Patient voiced understanding and agreement with the plan. Patient is hemodynamically stable at the time of disposition. Errol Disclaimer: Errol Disclaimer: This electronic medical record was generated, in whole or in part, using a voice recognition dictation system. Departure Departure Impression: Primary Impression: Pharyngitis Qualified Codes: J02.9 - Acute pharyngitis, unspecified Additional Impression: Person under investigation for COVID-19 Disposition: HOME / SELF CARE / HOMELESS Condition: GOOD Referrals: NO PCP (PCP) Patient Instructions: Viral and Bacterial Pharyngitis Additional Instructions: You were seen in the emergency department today for sore throat, cough, fever, headache. Your rapid strep test was negative. We are testing you for COVID-19 you will be notified of your results when they become available in approximately 1 to 2 days. Please self isolate until you receive these results. Perform warm salt water gargles. For any throat pain you can use the Magic mouthwash that is being prescribed for you. Take Tylenol and ibuprofen for any pain or fevers. You are being discharged home with an antibiotic, please start and finish it completely. Follow-up with your primary care provider tomorrow regarding your ER visit. Return to the emergency department if you develop shortness of breath, difficulty swallowing or breathing, high fevers refractory to treatment, tractable nausea or vomiting. Scripts [magic mouthwash] MOUTHWASH No Conflict Check 1 TSP PO Q6HRS for 7 Days, #120 ML 0 Refills 1 part viscous lidocaine 2%, 1 part maalox, 1 part deiphenhydramine 12.5mg/5ml swish, gargle and spit 1 teaspoon every 6 hours as needed. Prov: SHLOMO ZEE APRN 09/10/21 Amoxicillin (AMOXICILLIN) 500 Mg Capsule 1 CAP PO BID for 10 Days, #20 CAP 0 Refills Prov: SHLOMO ZEE APRN 09/10/21 SHLOMO ZEE APRN Sep 10, 2021 16:07
[2021-09-10] MEDS ORDERED: ACETAMINOPHEN 500 MG TABLET PO ONE (16:30)
--- NOTE | 2021-09-11 17:59 | NUR ---
IP: Informed pt of negative covid test. Pt verbalized understanding.
== END 2021-09-10 16:44 | disposition home or self-care (01) ==
LOC: ER 15:33
DX: J02.9 Acute pharyngitis, unspecified (principal); Z20.822 Contact with and (suspected) exposure to COVID-19; R05.9 Cough, unspecified; R50.9 Fever, unspecified; J45.909 Unspecified asthma, uncomplicated; K21.9 Gastro-esophageal reflux disease without esophagitis; I10 Essential (primary) hypertension
CPT/HCPCS: 87070; 87880; 99283; U0003; U0005

== ENCOUNTER 2021-12-10 23:08 | Emergency (ER) | payer MEDICAID ==
[~2021-12-10] VITALS: Ht 162.6 cm; Wt 120.0 kg
[~2021-12-10 23:08] MED LIST changes: +AMOX500C PO; +magic mouthwash PO
[2021-12-10 23:15] VITALS: BP 140/69
[2021-12-10 23:54] LABS: BASO # 0.1 x10^3/uL (0.0-0.2); BASO % 1 % (0-3); EOS # 0.4 x10^3/uL (0.0-0.7); EOS % 4 % (0-3); HEMATOCRIT 39.6 % (36.0-47.0); HEMOGLOBIN 13.9 g/dL (12.0-15.5); LYMPH # 3.1 x10^3/uL (1.0-4.8); LYMPH % 30 % (24-48); MEAN CORPUSCULAR HEMOGLOBIN 30 pg (25-35); MEAN CORPUSCULAR HGB CONC 35 g/dL (31-37); MEAN CORPUSCULAR VOLUME 85 fL (79-100); MONO # 0.7 x10^3/uL (0.0-1.1); MONO % 6 % (0-9); NEUT # 6.1 x10^3/uL (1.8-7.7); NEUT % 59 % (31-73); PLATELET COUNT 286 x10^3/uL (140-400); RED BLOOD COUNT 4.66 x10^6/uL (3.50-5.40); RED CELL DISTRIBUTION WIDTH 13.3 % (11.5-14.5); WHITE BLOOD COUNT 10.4 x10^3/uL (4.0-11.0)
[2021-12-11] MEDS ORDERED: ALBUTEROL SULFATE 2.5 MG/3 ML NEBU. NEB ONE
[2021-12-11 00:06] LABS: PROTHROMBIN TIME PATIENT 13.7 SEC (11.7-14.0)
[2021-12-11 00:09] LABS: CALCIUM 9.4 mg/dL (8.5-10.1); CREATININE 0.7 mg/dL (0.6-1.0); GFR 96.4; POTASSIUM 3.6 mmol/L (3.5-5.1)
[2021-12-11 00:14] LABS: ALBUMIN 3.6 g/dL (3.4-5.0); MAGNESIUM 1.9 mg/dL (1.8-2.4); TOTAL BILIRUBIN 0.3 mg/dL (0.2-1.0); TOTAL PROTEIN 7.3 g/dL (6.4-8.2)
[2021-12-11] MEDS ORDERED: IPRATRPIUM/ALBUTEROL 0.5/2.5MG 3 ML NEBU. NEB ONE ×2 (00:30)
[2021-12-11] MEDS ORDERED: LIDO:MAALOX 1:1 20 ML SINGLE DOSE. SWSW ONE (00:30)
--- NOTE | 2021-12-11 00:47 | PHYS DOC ---
Past Medical History Past Medical History: Anxiety, Asthma, GERD, Hypertension, Pneumonia Past Surgical History: , Other Additional Past Surgical Histo: CARPAL TUNEL Smoking Status: Current Every Day Smoker Alcohol Use: None Drug Use: None General Adult EDM: Chief Complaint: CHEST WALL PAIN HPI: HPI: Patient is a 31-year-old female who presents to the emergency department complaining of a slow onset of left-sided chest pain that started at approximately noon today. Patient reports this chest pain wraps around the outside of her chest to her mid back. Reports a 8-9 out of 10 pain, describes it as a burning soreness sensation. Patient states she took 2 tablets of 325 mg aspirin prior to arrival. Patient denies any relief in pain. Patient denies any increase in pain with deep inspiration/expiration, or movement of her upper extremities. Patient denies nausea, vomiting, diarrhea, or constipation, denies abdominal discomfort. Patient denies increased urinary frequency, urinary pressure, urinary burning, hematuria or other dysuria, patient denies matilde phoretic episodes, denies shortness of breath. Patient denies chest or nasal congestion, denies chest palpitations. Patient denies syncopal or near syncopal episodes, denies visual disturbances or dizziness. Patient denies headaches. Patient reports she is a cigarette smoker. Patient did take oral contraceptives when she was younger, reports last menstrual cycle was 1 week ago with normal duration of flow, patient states her father does have heart disease with congestive heart failure, denies a family history of sudden cardiac . Patient denies alcohol consumption or illicit drug use. Review of Systems: Review of Systems: 14 body systems of review of systems have been reviewed. See HPI for pertinent positives and negative responses, otherwise all other systems are negative, nonpertinent or noncontributory. Constitutional: Negative except as outlined in HPI above. Skin: Negative except as outlined in HPI above. Eyes: Negative except as outlined in HPI above. HENT: Negative except as outlined in HPI above. Respiratory: Negative except as outlined in HPI above. Cardiovascular: Negative except as outlined in HPI above. GI: Negative except as outlined in HPI above. : Negative except as outlined in HPI above. Musculoskeletal: Negative except as outlined in HPI above. Integument: Negative except as outlined in HPI above. Neurologic: Negative except as outlined in HPI above. Endocrine: Negative except as outlined in HPI above. Lymphatic: Negative except as outlined in HPI above. Psychiatric: Negative except as outlined in HPI above. Heart Score: C/O Chest Pain: Yes HEART Score for Chest Pain: HEART Score for Chest Pain Response (Comments) Value History Moderately Suspicious 1 ECG Normal 0 Age < 45 0 Risk Factors >3 Risk Factors or Hx CAD 2 Troponin < Normal Limit 0 Total 3 Risk Factors: Risk Factors: DM, Current or recent (<one month) smoker, HTN, HLP, family history of CAD, obesity. Risk Scores: Score 0 - 3: 2.5% MACE over next 6 weeks - Discharge Home Score 4 - 6: 20.3% MACE over next 6 weeks - Admit for Clinical Observation Score 7 - 10: 72.7% MACE over next 6 weeks - Early Invasive Strategies Current Medications: Current Medications Medications (Trade) Dose Ordered Sig/Alex Start Time Stop Time Status Last Admin Dose Admin Albuterol Sulfate (Ventolin Neb Soln) 2.5 mg 1X ONCE 12/11/21 00:00 12/11/21 00:01 DC 12/10/21 23:58 2.5 MG Albuterol/ Ipratropium (Duoneb) 3 ml 1X ONCE 12/11/21 00:30 12/11/21 00:31 DC Multi-Ingredient Mouthwash/Gargle (Gi Cocktail) 20 ml 1X ONCE 12/11/21 00:30 12/11/21 00:31 DC 12/11/21 00:33 20 ML Allergies: Allergies: Allergies Coded Allergies Type Severity Reaction Last Updated Verified cephalexin Allergy Intermediate 09/19/20 Yes Physical Exam: PE: Constitutional: Well developed, well nourished, no acute distress, non-toxic domo earance. 31-year-old female in no apparent distress. HENT: Normocephalic, atraumatic. Eyes: Conjunctiva normal, no discharge. Neck: Normal range of motion, no stridor. Cardiovascular: No cyanosis appreciated, distal cap refill less than 2 seconds. Heart sounds S1-S2 auscultation, regular rate and rhythm. Lungs & Thorax: Patient is in no respiratory distress, no audible adventitious lung sounds appreciated. There is no pain to palpation of the anterior thorax, there is a light expiratory wheeze of the left upper lobes to auscultation. All other lung mcdonough clear to auscultation. Abdomen: Nontender, no abnormalities noted. Abdomen round, soft, excessive weight/class III obesity as evident by BMI of 45.4. Skin: Warm, dry, no erythema, no rash. Back: No tenderness, no deformities. Extremities: No tenderness, no cyanosis, no clubbing, ROM intact, no edema. Neurologic: Alert and oriented X 3, normal motor function, normal sensory function, no focal deficits noted. Psychologic: Affect normal, judgement normal, mood normal. Current Patient Data: Labs: Laboratory Tests Test 12/10/21 23:30 White Blood Count 10.4 x10^3/uL (4.0-11.0) Red Blood Count 4.66 x10^6/uL (3.50-5.40) Hemoglobin 13.9 g/dL (12.0-15.5) Hematocrit 39.6 % (36.0-47.0) Mean Corpuscular Volume 85 fL (79-100) Mean Corpuscular Hemoglobin 30 pg (25-35) Mean Corpuscular Hemoglobin Concent 35 g/dL (31-37) Red Cell Distribution Width 13.3 % (11.5-14.5) Platelet Count 286 x10^3/uL (140-400) Neutrophils (%) (Auto) 59 % (31-73) Lymphocytes (%) (Auto) 30 % (24-48) Monocytes (%) (Auto) 6 % (0-9) Eosinophils (%) (Auto) 4 % (0-3) H Basophils (%) (Auto) 1 % (0-3) Neutrophils # (Auto) 6.1 x10^3/uL (1.8-7.7) Lymphocytes # (Auto) 3.1 x10^3/uL (1.0-4.8) Monocytes # (Auto) 0.7 x10^3/uL (0.0-1.1) Eosinophils # (Auto) 0.4 x10^3/uL (0.0-0.7) Basophils # (Auto) 0.1 x10^3/uL (0.0-0.2) Prothrombin Time 13.7 SEC (11.7-14.0) Prothrombin Time INR 1.1 (0.8-1.1) D-Dimer (Carolann) 0.37 ug/mlFEU (0.00-0.50) Sodium Level 135 mmol/L (136-145) L Potassium Level 3.6 mmol/L (3.5-5.1) Chloride Level 98 mmol/L (98-107) Carbon Dioxide Level 28 mmol/L (21-32) Anion Gap 9 (6-14) Blood Urea Nitrogen 12 mg/dL (7-20) Creatinine 0.7 mg/dL (0.6-1.0) Estimated GFR (Cockcroft-Gault) 96.4 BUN/Creatinine Ratio 17 (6-20) Glucose Level 118 mg/dL (70-99) H Calcium Level 9.4 mg/dL (8.5-10.1) Magnesium Level 1.9 mg/dL (1.8-2.4) Total Bilirubin 0.3 mg/dL (0.2-1.0) Aspartate Amino Transferase (AST) 17 U/L (15-37) Alanine Aminotransferase (ALT) 39 U/L (14-59) Alkaline Phosphatase 71 U/L (46-116) Troponin I High Sensitivity 5 ng/L (4-50) JN-Awh-E-Type Natriuretic Peptide 5 pg/mL (0-124) Total Protein 7.3 g/dL (6.4-8.2) Albumin 3.6 g/dL (3.4-5.0) Albumin/Globulin Ratio 1.0 (1.0-1.7) Lipase 84 U/L (73-393) Laboratory Tests 12/10/21 23:30 Laboratory Tests 12/10/21 23:30 Vital Signs: Vital Signs Date Time Temp Pulse Resp B/P (MAP) Pulse Ox O2 Delivery O2 Flow Rate FiO2 12/10/21 23:59 100 Room Air 12/10/21 23:15 98.6 96 20 140/69 (92) 98.6 EKG: EKG: EKG performed at 2325 by ED nursing staff shows a normal sinus rhythm without other ectopy, heart rate 89 bpm, MS interval point 194, QTc interval 0.444, no acute STEMI, no ACS, no acute ischemia appreciated, EKG interpreted by ED attending physician Dr. Hernandez. Serial EKG performed by ED nursing staff at 00 17 shows a normal sinus rhythm without other ectopy, heart rate 95 bpm, MS interval point 168, QTc interval 0.461, no acute STEMI, no ACS, no acute ischemia appreciated, EKG interpreted by ED attending physician Dr. Hernandez. Radiology/Procedures: Radiology/Procedures: REASON: Chest pain PROCEDURE: CHEST AP ONLY AP chest x-ray HISTORY: Chest pain. COMPARISON: Chest x-ray July 22, 2021 FINDINGS: Heart size upper limits of normal. Mediastinal silhouette is normal. No pneumothorax, pulmonary opacities or pleural effusions. Bones are unremarkable. IMPRESSION: No acute process. Electronically signed by: Jose Salcedo MD (12/11/2021 1:33 AM) [facility] [place] Med Decision Making: Course & Med Decision Making Pertinent Labs and Imaging studies reviewed. (See chart for details) 31-year-old female, vital signs reviewed, resents emergency department concerning chest pain that started at noon today. Patient's physical examination is unremarkable however with patient's history of cigarette smoking, family history of cardiac disease, history of oral contraceptive use, BMI of greater than 40, will order serial EKG x2, D-dimer, blood pressure/cardiac/pulse ox monitoring, saline lock, chest x-ray, CBC, CMP, lipase, urinalysis assay, urine test, high-sensitivity troponin I, PT/INR, magnesium level, NT proBNP. Patient has ongoing chest discomfort, will start normal saline, give DuoNeb treatment, GI cocktail. Patient's labs are unremarkable, patient continues to have chest pain, lung sounds are clear to auscultation after breathing treatment, patient states there is no change in chest discomfort after GI cocktail. The patient's HEART score equals 3, discussed with patient concerns for cardiac process, recommended serial high-sensitivity troponin I, admission to hospital for further evaluation by a carpenter inspector. Patient has denied this, states she will sign out AGAINST MEDICAL ADVICE. Discussed with patient risk versus benefits of this decision. Patient is adamant she wishes to go home at this time and lieu of her chest pain. Notified by the patient's ED nurse that the patient wishes to leave AGAINST MEDICAL ADVICE. The patient and I had an extensive discussion regarding the risks of leaving AMA including but not limited to , permanent disability, and worsening condition. Also had an extensive discussion with the patient regarding the benefits of excepting admission and transfer which include promotion of health and wellness, and ongoing treatment of disease processes. The patient acknowledged the risks and benefits and agreed to take full responsibility of leaving AGAINST MEDICAL ADVICE. The patient was alert and oriented x4 and had full medical decision-making capability when they signed the AMA forms. Dragon Disclaimer: Dragon Disclaimer: This electronic medical record was generated, in whole or in part, using a voice recognition dictation system. Departure Departure Impression: Primary Impression: Left against medical advice Additional Impression: Chest pain Qualified Codes: R07.9 - Chest pain, unspecified Disposition: 07 LEFT AGAINST MEDICAL ADVICE Condition: STABLE Referrals: NO PCP (PCP) Patient Instructions: Chest Pain (Nonspecific) Additional Instructions: You were seen today in the emergency department for chest pain have been going on since noon. You had 2 EKGs done today that did not show any concerning findings. Your initial lab work did not show any concerning findings, your chest x-ray did not show any concerning findings. However, I did recommend you stay for additional lab work and admission until seen by carpenter inspector. You have refused this and decided to leave [place] emergency department AGAINST MEDICAL ADVICE. I encourage you to return to the emergency department immediately for any worsening symptoms. Please see your doctor tomorrow. Patient does not wish to proceed with medical care recommended by [employer]. Patient given information related to possible complications, up to and including , which could occur as a result of leaving the hospital at this time. Patient verbalizes understanding of risks involved due to leaving against medical advice. Patient has signed AMA form. KATARZYNA BHAGAT APRN Dec 11, 2021 00:47
--- NOTE | 2021-12-11 00:59 | EKG ---
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
--- NOTE | 2021-12-11 01:03 | EKG ---
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
--- NOTE | 2021-12-11 01:35 | RAD ---
AP chest x-ray HISTORY: Chest pain. COMPARISON: Chest x-ray July 22, 2021 FINDINGS: Heart size upper limits of normal. Mediastinal silhouette is normal. No pneumothorax, pulmo nary opacities or pleural effusions. Bones are unremarkable. IMPRESSION: No acute process. Electronically signed by: Jose Salcedo MD (12/11/2021 1:33 AM) [facility]
== END 2021-12-11 00:55 | disposition left against medical advice (07) ==
LOC: ER 23:08
DX: R07.89 Other chest pain (principal); F41.9 Anxiety disorder, unspecified; J45.909 Unspecified asthma, uncomplicated; K21.9 Gastro-esophageal reflux disease without esophagitis; I10 Essential (primary) hypertension; F17.200 Nicotine dependence, unspecified, uncomplicated; Z88.1 Allergy status to other antibiotic agents
CPT/HCPCS: 36415; 71045; 80053; 83690; 83735; 83880; 84484; 85025; 85379; 85610; 93005; 94640; 99285; J7613